=== PATIENT | male | born 1985 | race Caucasian/White ===

== ENCOUNTER 2017-07-27 10:35 | Inpatient (IN) | payer MEDICAID ==
--- NOTE | 2017-07-27 10:48 | CPEKG ---
Heart Rate: 118 RR Interval: 508 P-R Interval: 184 QRSD Interval: 88 QT Interval: 324 QTC Interval: 455 P Ard[place]: 63 QRS Ard[place]: 5 T Wave [place]: 211 EKG Severity - ABNORMAL ECG - EKG Impression: SINUS TACHYCARDIA EKG Impression: RIGHT ATRIAL ABNORMALITY EKG Impression: LEFT VENTRICULAR HYPERTROPHY Electronically Signed By: Lionel Flaherty 27-Jul-2017 11:28:19
[2017-07-27] MEDS ORDERED: NICOTINE 21 MG/24 HR PATCH TD ONE (11:17)
[2017-07-27] MEDS ORDERED: NS 1,000 ML IV ONE (11:17)
[2017-07-27] MEDS ORDERED: LORazepam 2 MG/ML INJ IVP ONE ×2 (11:17→12:37)
[2017-07-27] MEDS ORDERED: LORazepam 1 MG TAB ONE (11:18)
[2017-07-27] MEDS ORDERED: LORazepam 1 MG TAB PO ONE (11:20)
--- NOTE | 2017-07-27 11:20 | EDPHY ---
H & P Time Seen by Provider: 07/27/17 11:04 HPI/ROS: CHIEF COMPLAINT: Cough and vomiting HISTORY OF PRESENT ILLNESS: Patient has been sick since Saturday of this week, had cough which got worse the last 3 days with greenish dark and then yellow orange sputum. Bilateral upper chest congestion. Symptoms severe and then associated with 6 episodes of nausea and vomiting, most recently today. Symptoms moderate to severe. Not better worse with anything. REVIEW OF SYSTEMS: Eye: no change in vision ENT: no sore throat Cardiac: No palpitations or syncope Pulmonary: No hemoptysis Abdomen: No abdominal pain or diarrhea Musculoskeletal: No leg swelling Skin: no rash Neuro: no headache Constitutional: no fever : no urinary symptoms A comprehensive 10 point review of systems is otherwise negative aside from elements mentioned in the history of present illness. PAST MEDICAL HISTORY: Negative except for previous pneumonia and anxiety disorder. Social history: No recent travel or immobilization, is a tobacco smoker. Frequent alcohol use. General Appearance: Alert and conversant, cooperative. Eyes: No scleral icterus. ENT, Mouth: Dry mucous membranes. Respiratory: Left lower lung crackles, tachypneic. Cardiovascular: Regular rate and rhythm. Tachycardic. Gastrointestinal: Abdomen is soft and non tender. Neurological: Alert, face symmetric, normal motor and sensory in extremities. Skin: Warm and dry, no rashes. Musculoskeletal: No peripheral edema. No calf tenderness. Psychiatric: Not agitated. Emergency Department course/MDM: Patient has anxiety, 1 mg oral Ativan and nicotine patch ordered. Emphasize the patient with tachycardia and hypoxemia he would likely need to be admitted, high suspicion for pneumonia. Chest x-ray, sepsis screening with lactate and blood cultures. 1211: Lactate 2.7, severe sepsis, appropriate IV fluid bolus and repeat lactate , ceftriaxone and azithromycin IV. Requires admission for pulmonary infection with hypoxemia. Additional 2 mg IV Ativan given. Ceftriaxone started in ED. Repeat lactate 2.6. Smoking Status: Heavy smoker Constitutional: Initial Vital Signs Temperature (C) 36.6 C 07/27/17 10:43 Heart Rate 123 H 07/27/17 10:43 Respiratory Rate 24 H 07/27/17 10:43 Blood Pressure 124/91 H 07/27/17 10:43 O2 Sat (%) 88 L 07/27/17 10:43 O2 Delivery Mode Nasal Cannula O2 (L/minute) 2 Allergies/Adverse Reactions: No Known Allergies Allergy (Unverified 07/27/17 10:47) Home Medications: Medication Instructions Recorded NK [No Known Home Meds] 07/27/17 Medical Decision Making - Diagnostics EKG Interpretation: 12-lead EKG interpreted by me; official reading is in trace master. My interpretation is sinus tachycardia rate 118, probable LVH. Imaging Results: Imaging Impressions Chest X-Ray 07/27/17 11:16 Impression: Diffuse peribronchial thickening with scattered opacities and fissural thickening. While this most likely represents bronchitis with pneumonia , fluid overload and asymmetric pulmonary edema could have a similar appearance. Imaging: I viewed and interpreted images myself Differential Diagnosis: Differential diagnosis considered for shortness of breath including but not limited to pulmonary infectious process, COPD, asthma, pulmonary embolus and congestive heart failure. Consult/Admit Bed Type: [place] [address] Critical Care Time: Critical care time spent by me, Dr. Flaherty, exclusively with the care of this patient was 35 minutes, exclusive of PA or VETERINARY TOXICOLOGIST time and exclusive of separate procedures. The organ system at risk was pulmonary with tachycardia and hypoxemia, and I ordered supplemental oxygen, IV fluids, IV antibiotics, multiple diagnostics, hospitalist consultation to stabilize the patient and prevent worsening of the patient's condition. - Data Points Laboratory Results: Laboratory Results 07/27/17 12:00 07/27/17 12:00 07/27/17 07/27/17 07/27/17 12:00 12:00 12:00 WBC 4.30 10^3/uL 10^3/uL (3.80-9.50) RBC 4.60 10^6/uL 10^6/uL (4.40-6.38) Hgb 17.3 g/dL g/dL (13.7-17.5) Hct 48.1 % % (40.0-51.0) MCV 104.6 fL H fL (81.5-99.8) MCH 37.6 pg H pg (27.9-34.1) MCHC 36.0 g/dL g/dL (32.4-36.7) RDW 12.5 % % (11.5-15.2) Plt Count 127 10^3/uL L 10^3/uL (150-400) MPV 10.6 fL fL (8.7-11.7) Neut % (Auto) 69.2 % % (39.3-74.2) Lymph % (Auto) 17.2 % % (15.0-45.0) Faulk % (Auto) 12.3 % % (4.5-13.0) Eos % (Auto) 0.2 % L % (0.6-7.6) Baso % (Auto) 0.9 % % (0.3-1.7) Nucleat RBC Rel Count 0.0 % % (0.0-0.2) Absolute Neuts (auto) 2.97 10^3/uL 10^3/uL (1.70-6.50) Absolute Lymphs (auto) 0.74 10^3/uL L 10^3/uL (1.00-3.00) Absolute Monos (auto) 0.53 10^3/uL 10^3/uL (0.30-0.80) Absolute Eos (auto) 0.01 10^3/uL L 10^3/uL (0.03-0.40) Absolute Basos (auto) 0.04 10^3/uL 10^3/uL (0.02-0.10) Absolute Nucleated RBC 0.00 10^3/uL 10^3/uL (0-0.01) Immature Gran % 0.2 % % (0.0-1.1) Immature Gran # 0.01 10^3/uL 10^3/uL (0.00-0.10) PT 13.3 SEC SEC (12.0-15.0) INR 0.99 (0.83-1.16) APTT 28.0 SEC SEC (23.0-38.0) VBG Lactic Acid Sodium 145 mEq/L mEq/L (135-145) Potassium 4.2 mEq/L mEq/L (3.5-5.2) Chloride 108 mEq/L mEq/L (97-110) Carbon Dioxide 27 mEq/l mEq/l (22-31) Anion Gap 10 mEq/L mEq/L (8-16) BUN 7 mg/dL mg/dL (7-23) Creatinine 0.8 mg/dL mg/dL (0.7-1.3) Estimated GFR > 60 Glucose 81 mg/dL mg/dL (70-100) Calcium 8.2 mg/dL L mg/dL (8.5-10.4) Total Bilirubin 1.0 mg/dL mg/dL (0.1-1.4) 07/27/17 12:00 WBC RBC Hgb Hct MCV MCH MCHC RDW Plt Count MPV Neut % (Auto) Lymph % (Auto) Faulk % (Auto) Eos % (Auto) Baso % (Auto) Nucleat RBC Rel Count Absolute Neuts (auto) Absolute Lymphs (auto) Absolute Monos (auto) Absolute Eos (auto) Absolute Basos (auto) Absolute Nucleated RBC Immature Gran % Immature Gran # PT INR APTT VBG Lactic Acid 2.7 mmol/L H mmol/L (0.7-2.1) Sodium Potassium Chloride Carbon Dioxide Anion Gap BUN Creatinine Estimated GFR Glucose Calcium Total Bilirubin Medications Given: Azithromycin 500 mg/ Sodium (Chloride) 255 mls @ 255 mls/hr IV EDNOW ONE PRN Reason: Protocol Stop: 07/27/17 13:59 Last Admin: 07/27/17 13:03 Dose: 255 mls Discontinued Medications Sodium Chloride (Ns) 1,000 mls @ 0 mls/hr IV EDNOW ONE; Wide Open PRN Reason: Protocol Stop: 07/27/17 11:18 Last Admin: 07/27/17 12:05 Dose: 1,000 mls Ceftriaxone Sodium/Dextrose (Rocephin 1 Gm (Premix)) 50 mls @ 100 mls/hr IV EDNOW ONE PRN Reason: Protocol Stop: 07/27/17 12:50 Last Admin: 07/27/17 12:34 Dose: 50 mls Sodium Chloride (Ns) 1,800 mls @ 3,600 mls/hr 30 ml/kg infuse over 30 min ( 1800 ml) IV EDNOW ONE PRN Reason: Protocol Stop: 07/27/17 12:50 Last Admin: 07/27/17 12:32 Dose: 1,800 mls Lorazepam (Ativan Injection) 1 mg IVP EDNOW ONE Stop: 07/27/17 11:18 Last Admin: 07/27/17 11:21 Dose: Not Given Lorazepam (Ativan) 1 mg PO ONCE ONE Stop: 07/27/17 11:21 Last Admin: 07/27/17 11:21 Dose: 1 mg Lorazepam (Ativan Injection) 2 mg IVP EDNOW ONE Stop: 07/27/17 12:38 Last Admin: 07/27/17 12:40 Dose: 2 mg Nicotine (Nicoderm Cq) 21 mg TD EDNOW ONE Stop: 07/27/17 11:18 Last Admin: 07/27/17 12:05 Dose: 21 mg Departure - Departure Disposition: [facility] Acute Clinical Impression: Pneumonia Qualifiers: Pneumonia type: due to unspecified organism Condition: Good
[2017-07-27 12:17] LABS: PLATELET COUNT 127 10^3/uL (150-400)
[2017-07-27] MEDS ORDERED: AZITHROMYCIN IV 500 MG in D5W 250 ML IV ONE (12:21)
[2017-07-27] MEDS ORDERED: NS 1,800 ML IV ONE ×2 (12:21→14:08)
[2017-07-27 12:27] LABS: INR 0.99 (0.83-1.16); PROTIME(PATIENT) 13.3 SEC (12.0-15.0)
[2017-07-27] MEDS ORDERED: AZITHROMYCIN IV 500 MG in NS 250 ML IV ONE (13:00)
[2017-07-27] MEDS ORDERED: ACETAMINOPHEN 325 MG TAB PO PRN (13:27)
[2017-07-27] MEDS ORDERED: ALBUTEROL 3 ML DEYVIAL IH PRN (13:27)
[2017-07-27] MEDS ORDERED: NICOTINE POLACRILEX 2 MG GUM B PRN (13:27)
[2017-07-27] MEDS ORDERED: LORazepam 1 MG TAB PO PRN (13:27)
[2017-07-27] MEDS ORDERED: ONDANSETRON DISINTEGRATING 4 MG TAB PO PRN (13:27)
[2017-07-27] MEDS ORDERED: MAG HYDROX/AL HYDROX/SIMETH 30 ML UDCUP PO PRN (13:27)
[2017-07-27] MEDS ORDERED: HYDROCODONE/APAP 5/325 TAB PO PRN (13:27)
[2017-07-27] MEDS ORDERED: PROMETHAZINE HCL 25 MG/ML INJ IVP PRN (13:27)
--- NOTE | 2017-07-27 13:36 | ASMTCMCOM ---
CM Note CM Note Notes: Pt presented to the Emergency Department with a cough and vomiting x several days. Per MD notes, pt to be admitted for high suspicion of pneumonia No significant history. Per Demographics, pt appears to live alone, but has a fiance named Funmi. Anticipate pt will likely discharge home independently when medically stable. CM will continue to follow for any potential needs. Current Discharge Plan: To be determined Date Signed: 07/27/2017 01:35 PM Electronically Signed By:Paloma Juan RN
[2017-07-27] MEDS ORDERED: IOPAMIDOL (ISOVUE 370) 100 ML BTL IV ONE (14:09)
[2017-07-27] MEDS ORDERED: ALTEPLASE 2 MG VIAL IVP PRN (15:27)
[2017-07-27] MEDS: LORazepam 2 MG/ML INJ IVP PRN ×2 (15:39→23:43)
[2017-07-27] MEDS: ONDANSETRON 4 MG/2 ML VIAL IVP PRN ×2 (15:40→20:03)
--- NOTE | 2017-07-27 16:01 | GCON ---
[f rep st] CONSULTATION RADIO ENGINEERING TEACHER CONSULTATION REASON FOR ADMISSION: Acute hypoxemic respiratory failure secondary to pneumonia and pneumonia. HISTORY OF PRESENT ILLNESS: The patient is a 31-year-old, white male with a past medical history of anxiety disorder. Over the last week, he has had worsening cough that began producing greenish sputu m. There has been some blood-tinged sputum, as well. He has had increasing nausea and vomiting. He subsequently became breathless and sought medical attention in the emergency room. He was subsequen tly admitted to the floor and was then transferred to the intensive care unit secondary to continued hypoxemia. In discussion with the patient, he states, with the exception of breathlessness as well a s cough, he feels somewhat better. His nausea has improved. Currently, he is resting comfortably on 100% non-rebreather. REVIEW OF SYSTEMS: A 10-point review of systems was performed and negative with the exception of wha t is in the HPI. PAST MEDICAL HISTORY: Significant for anxiety disorder. ALLERGIES: No known allergies to medications. SOCIAL HISTORY: He is a 12 [id number] and continues to smoke. He also is apparently an alcoho lic per his fiancee. FAMILY HISTORY: Noncontributory. 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 He is single, but engaged. HOME MEDICATIONS: None. PHYSICAL EXAMINATION: VITAL SIGNS: Blood pressure 70/39, pulse 113, respirations 36, temperature 36 .8, oxygen saturation 96% on 15 L non-rebreather. GENERAL: Thin but well-developed 31-year-old whit e male who is in moderate respiratory distress. HEENT: Eyes are PERRLA, EOMI. Throat exam is defer red. NECK: Supple. No cervical adenopathy. HEART: Regular rate and rhythm but tachycardic. LUNG S: Diminished breath sounds. He is tachypneic. ABDOMEN: Soft, nontender. Bowel sounds are presen t in all 4 quadrants. EXTREMITIES: No clubbing, cyanosis, or edema. LABORATORIES: White count 4.3, hemoglobin 7, hematocrit 48, MCV 104, platelet count 127. INR is 0.9 9. Sodium 145, potassium 4.2, chloride 108, CO2 is 27, BUN 7, creatinine 0.8. Lactate is 2.70. Chest x-ray reveals diffuse scattered opacifications throughout both lungs. CT scan of the chest rev eals similar, including patchy infiltrates in all lung samuels. IMPRESSION: 1. Multilobar pneumonia. 2. Acute hypoxemic respiratory failure secondary to above. 3. Alcoholism. 4. Tobacco abuse. 5. Anxiety. 6. Sepsis with shock. 7. Lactic acidosis. 8. Macrocytosis. RECOMMENDATIONS: 1. Continue high-flow oxygen. 2. Sepsis protocol. 3. CIWA protocol. 4. Agree with current antibiotic coverage. 5. Consider IV steroids. 6. Consider BiPAP versus intubation if necessary. 7. DVT and PE prophylaxis. 8. Stress ulcer prophylaxis. /[id number]/MODL
[2017-07-27] MEDS: MULTIVITAMINS 1 EACH TAB PO SCH (16:25)
[2017-07-27] MEDS: FOLIC ACID 1 MG TAB PO SCH (16:25)
--- NOTE | 2017-07-27 16:28 | PDGENHP ---
History and Physical - Chief Complaint sob - History of Present Illness 31 yo M with no PMH other than etoh abuse presenting with sob, cough, n/v for the last 5 days. He notes beginning to feel ill as if he had the flu earlier in the week. He had a cough which was initially yellow to green, and more recently has been productive of orange to red streaked sputum. He often coughs so hard that he vomits. He states that due to not feeling well in the past week, he has been drinking heavier than usual. He admits that in general he tends to drink too much, but has not had withdrawal in the past. He denies feeling as if he is having withdrawal currently. History Information - Allergies/Home Medication List Allergies/Adverse Reactions: No Known Allergies Allergy (Unverified 07/27/17 10:47) Home Medications: NK [No Known Home Meds] 07/27/17 [Last Taken Unknown] I have personally reviewed and updated: family history, medical history, social history, surgical history - Past Medical History Additional medical history: etoh abuse - Surgical History Reports: no pertinent surgical hx - Family History Positive for: non-pertinent - Social History Smoking Status: Heavy smoker Alcohol Use: Heavy Drug Use: None Review of Systems Review of Systems: ROS: 10pt was reviewed & negative except for what was stated in HPI & below Physical Exam Physical Exam: Temp Pulse Resp BP Pulse Ox 37.2 C 116 H 32 H 110/73 97 07/27/17 16:00 07/27/17 16:00 07/27/17 16:00 07/27/17 16:00 07/27/17 16:00 O2 (L/minute) 15 FIO2 (%) 100 Constitutional: not in pain, uncomfortable, No no apparent distress Eyes: PERRL, anicteric sclera Ears, Nose, Mouth, Throat: moist mucous membranes, hearing normal Cardiovascular: no murmur, rub, or gallop, tachycardia, No edema Respiratory: expiratory wheeze, bronchial breath sounds, respiratory distress Gastrointestinal: normoactive bowel sounds, soft, non-tender abdomen Genitourinary: no bladder tenderness Skin: warm, normal color Musculoskeletal: full muscle strength Neurologic: AAOx3 Psychiatric: interacting appropriately, not anxious Lab Data & Imaging Review 07/27/17 12:00 07/27/17 12:00 WBC 4.30 10^3/uL (3.80-9.50) 07/27/17 12:00 RBC 4.60 10^6/uL (4.40-6.38) 07/27/17 12:00 Hgb 17.3 g/dL (13.7-17.5) 07/27/17 12:00 Hct 48.1 % (40.0-51.0) 07/27/17 12:00 MCV 104.6 fL (81.5-99.8) H 07/27/17 12:00 MCH 37.6 pg (27.9-34.1) H 07/27/17 12:00 MCHC 36.0 g/dL (32.4-36.7) 07/27/17 12:00 RDW 12.5 % (11.5-15.2) 07/27/17 12:00 Plt Count 127 10^3/uL (150-400) L 07/27/17 12:00 MPV 10.6 fL (8.7-11.7) 07/27/17 12:00 Neut % (Auto) 69.2 % (39.3-74.2) 07/27/17 12:00 Lymph % (Auto) 17.2 % (15.0-45.0) 07/27/17 12:00 Kemper % (Auto) 12.3 % (4.5-13.0) 07/27/17 12:00 Eos % (Auto) 0.2 % (0.6-7.6) L 07/27/17 12:00 Baso % (Auto) 0.9 % (0.3-1.7) 07/27/17 12:00 Nucleat RBC Rel Count 0.0 % (0.0-0.2) 07/27/17 12:00 Absolute Neuts (auto) 2.97 10^3/uL (1.70-6.50) 07/27/17 12:00 Absolute Lymphs (auto) 0.74 10^3/uL (1.00-3.00) L 07/27/17 12:00 Absolute Monos (auto) 0.53 10^3/uL (0.30-0.80) 07/27/17 12:00 Absolute Eos (auto) 0.01 10^3/uL (0.03-0.40) L 07/27/17 12:00 Absolute Basos (auto) 0.04 10^3/uL (0.02-0.10) 07/27/17 12:00 Absolute Nucleated RBC 0.00 10^3/uL (0-0.01) 07/27/17 12:00 Immature Gran % 0.2 % (0.0-1.1) 07/27/17 12:00 Immature Gran # 0.01 10^3/uL (0.00-0.10) 07/27/17 12:00 PT 13.3 SEC (12.0-15.0) 07/27/17 12:00 INR 0.99 (0.83-1.16) 07/27/17 12:00 APTT 28.0 SEC (23.0-38.0) 07/27/17 12:00 VBG Lactic Acid 2.8 mmol/L (0.7-2.1) H 07/27/17 16:10 Sodium 145 mEq/L (135-145) 07/27/17 12:00 Potassium 4.2 mEq/L (3.5-5.2) 07/27/17 12:00 Chloride 108 mEq/L (97-110) 07/27/17 12:00 Carbon Dioxide 27 mEq/l (22-31) 07/27/17 12:00 Anion Gap 10 mEq/L (8-16) 07/27/17 12:00 BUN 7 mg/dL (7-23) 07/27/17 12:00 Creatinine 0.8 mg/dL (0.7-1.3) 07/27/17 12:00 Estimated GFR > 60 07/27/17 12:00 Glucose 81 mg/dL (70-100) 07/27/17 12:00 Calcium 8.2 mg/dL (8.5-10.4) L 07/27/17 12:00 Total Bilirubin 0.8 mg/dL (0.1-1.4) 07/27/17 15:25 Conjugated Bilirubin 0.4 mg/dL (0.0-0.5) 07/27/17 15:25 Unconjugated Bilirubin 0.4 mg/dL (0.0-1.1) 07/27/17 15:25 AST 79 IU/L (17-59) H 07/27/17 15:25 ALT 50 IU/L (21-72) 07/27/17 15:25 Alkaline Phosphatase 52 IU/L (38-126) 07/27/17 15:25 Total Protein 5.1 g/dL (6.3-8.2) L 07/27/17 15:25 Albumin 2.6 g/dL (3.5-5.0) L 07/27/17 15:25 Procalcitonin 0.04 ng/mL (0.02-0.10) 07/27/17 15:25 Visualized and Interpreted Chest x-ray results: Yes Chest X-Ray results: other (cardiomegaly, pulmonary edema) Visualized and Interpreted imaging results: Yes Interpretation: ct chest: NO pe, patchy multifocal infiltrates c/w pulmonary edema, cardiomegaly, acute CHF Visualized and Interpreted EKG results: Yes EKG Interpretation: Positive for: LVH EKG additional interpertation: sinus tachycardia Assessment & Plan Assessment: Pneumonia (Acute) 31 yo M with limited PMH admitted with acute hypoxic respiratory failure and acute systolic chf # acute hypoxic respiratory failure: initially requiring low flow o2 but rapidly progressing and now requiring 15L NRB. In the setting of multifocal bilateral infiltrates c/w acute chf as next # acute systolic heart failure: stat echo performed showing EF of 15%, etiology unclear, ? viral myopericarditis versus toxic etiology though patient denies drug use. Will get tox screen, trop/bnp pending, cardiology consulted. # pna: sounds as if this is contributing as well with preceding illness, however now with obvious chf. Started on ctx/azithro, blood and sputum cultures pending, resp viral pcr panel pending # hypotension: so far has been fluid responsive, lactate only mildly elevated, low threshold to start pressors, PICC line placed # etoh abuse: with likely some withdrawal contributing to above, started on ciwa # IP status, high risk requiring ICU level care Patient new to my care. Further hx obtained from ray present at bedside. Care plan reviewed with pulmonary/cardiology as above. > 40 min of critical care time spent in evaluation/mgmt of above.
--- NOTE | 2017-07-27 16:47 | SOAPPROG ---
SOAP Progress Note Assessment/Plan: Assessment: Cardiology consultation performed and dictated. 31 y/o man with no previous cardiac problems or cardiac work up. He drinks 6-7 alcohol drinks per day x ten years and frequent, recent cocaine use with one week of URI symptoms and green sputum production and now rapidly worsening shortness of breath at rest. Stat bedside echo today shows LV enlargement ( consistent with chronic CHF) with LVEF 10-15% and global hypokinesis, mild RV dysfunction, severe MR without MV prolapse and moderate TR with estimated PAS 44mmHg, trivial pericardial effusion with no tamponade, no pleural effusion and normal trileaflet AV with no or AI. On my exam tachycardic with S3 but intravascularly dry. IMP: 1)acute on chronic probably non-ischemic systolic CHF with LVEF 13% from ETOH and cocaine use. Nothing to suggest acute myocarditis or KS. 2)URI 3)ETOHism 4)cocaine abuse REC: 1)IVF: NS at 100cc/hr ([facility] has already gotten 2 liters in first five hours of hospitalization) 2)Dobutamine 3mcg/kg/min IV thru PICC line. If no NSVT or angina, increase to 5mcg/kg/min 3)if SBP < 85 constantly, add Dopamine IV gtt at 3mcg/kg/min and titrate up for SBP > 105 4)ecg in AM 5)NT-pro BNP level 6)serial cardiac troponin q6hrs x 3 7)later in hospitalization once out of decompensated shock, will add Coreg and Lisinopril 8)will need a L/R cardiac cath later towards end of hospitalization Thanks. Will follow with you closely. Discussed my assessment openly and honestly with patient and his fiance at bedside and CUSTOMER MARKETING ASSISTANT and Dr. Darell Devi. 07/27/17 16:35 Objective: Vital Signs Temp Pulse Resp BP Pulse Ox 37.2 C 116 H 32 H 110/73 97 07/27/17 16:00 07/27/17 16:00 07/27/17 16:00 07/27/17 16:00 07/27/17 16:00 Microbiology 07/27/17 12:30 Respiratory Panel (PCR) - Final Nasal, Sinus - Swab No Organism Detected 07/26/17 07/27/17 07/28/17 05:59 05:59 05:59 Intake Total 2000 Output Total 0 Balance 2000 PT 13.3 SEC (12.0-15.0) 07/27/17 12:00 INR 0.99 (0.83-1.16) 07/27/17 12:00 ICD10 Worksheet Patient Problems: Problems Problem Status Onset Pneumonia Acute
[2017-07-27] MEDS ORDERED: NS 1,000 ML IV SCH (17:00)
[2017-07-27] MEDS ORDERED: DOBUTamine 500 MG in D5W 250 ML IV SCH (17:00)
--- NOTE | 2017-07-27 19:27 | GCON ---
[f rep st] CONSULTATION CONGESTIVE HEART FAILURE CONSULTATION DATE OF CONSULTATION: 07/27/2017 REASON FOR CONSULTATION: Evaluate gentleman with shortness of breath at rest, hypotension (with a bl ood pressure of 70/54), and new onset heart failure. HISTORY OF PRESENT ILLNESS: I was asked by Dr. Geraldine Dolan to consult for the above reasons. Th e patient is a 31-year-old gentleman with no previous cardiac problems. He admits that he drinks 6-7 alcoholic drinks a day for the last 10 years and uses cocaine frequently, in particular in the last week. He has had no previous cardiac problems or workup that he knows of. For the last week, he has been getting more short of breath with pleuritic chest pain and greenish sputum production. He came into the emergency room and quickly became more short of breath. A bedside echo demonstrates an LVE F of 10% to 15% with global hypokinesis. The left ventricle is enlarged, consistent with a chronic p rocess. He has mild RV dysfunction, severe central mitral regurgitation with no evidence of mitral v alve prolapse, and moderate tricuspid insufficiency with estimated PA pressures of 44 mmHg. He has a normal trileaflet aortic valve with no or AI. There is a trivial pericardial effusion with no ta mponade, and there is no pleural effusion. He currently still is short of breath at rest and having pleuritic chest pain. He denies fevers or chills. His EKG demonstrated sinus tachycardia with left atrial enlargement. PAST MEDICAL HISTORY: 1. Chronic alcohol abuse. 2. Probable new upper respiratory infection. 3. Anxiety. 4. Cocaine addiction. PAST SURGICAL HISTORY: None. CURRENT MEDICATIONS: Azithromycin, ceftriaxone, and normal saline x2 L. ALLERGIES: No known drug allergies. SOCIAL HISTORY: Patient's fiance is in the room with him. He smokes half a pack per cigarettes per day. Alcohol and cocaine use as per HPI. FAMILY HISTORY: Unremarkable for premature coronary artery disease or heart failure. REVIEW OF SYSTEMS: Patient reports his weight fluctuates about 10 pounds over the last 2 months. He reports no TIA or CVA symptoms. He has no GI bleed symptoms such as hematemesis, melena, or bright red blood per rectum. Rest of 10-point review of systems is negative. PHYSICAL EXAMINATION: VITAL SIGNS: Afebrile. Pulse 113 and regular. Blood pressure 91/50. Respir ations 28. Weight 61.2 kg. GENERAL: A sick-appearing gentleman with mild respiratory distress and n o chest pain. EYES: Pupils equal and reactive to light. ENT: Oral mucosa with no cyanosis. NECK: Jugular venous pressure to 6-7 cm. Carotid pulses 2+ bilaterally with no obvious bruits. No nucha l rigidity noted. LUNGS: Wheezes throughout. HEART: Tachycardic with normal PMI, a 1/6 systolic m urmur, and positive S3 gallop heard. ABDOMEN: No guarding or rebound. No hepatosplenomegaly or asc ites. EXTREMITIES: 1 to 2+ peripheral pulses. No edema noted. MUSCULOSKELETAL: No scoliosis. MICK RO: Normal affect and mood neck with no nuchal rigidity. SKIN: No bleeding or cyanosis. DIAGNOSTICS: EKG: Sinus tachycardia with left atrial enlargement. LABS: White count 4.3, hematocrit 48, platelets 127, MCV 105. Sodium 145, potassium 4.2, chloride 1 08, bicarb 27, BUN 7, creatinine 0.8. AST 79, ALT 50, albumin 2.6. Troponin and BNP level pending. IMPRESSION AND RECOMMENDATIONS: A 31-year-old gentleman with probably xdcms-sc-kfsomer nonischemic s ystolic heart failure with a left ventricular ejection fraction of 12% from alcohol and cocaine abuse . Clinically, he appears intravascularly dry. I think his acute clinical deterioration is his havin g an upper respiratory infection with a longstanding cardiomyopathy. There is no suggestion of acute myocarditis or obstructive coronary disease causing an acute myocardial infarction. RECOMMENDATIONS: 1. Would continue normal saline at 100 cc/hr, as I think he is intravascularly dry. 2. Would start on dobutamine at 3 mcg/kg per minute and titrate up to 5 mcg/kg per minute as long as there is no angina or nonsustained VT, as he is in moderate cardiogenic shock. 3. If those maneuvers do not keep his blood pressure above 85, would add dopamine at 3 mcg/kg per mi nute and titrate up as needed for a systolic blood pressure above 105. 4. Would get serial cardiac enzymes x3 sets over the next 24 hours. 5. Later in this hospitalization, once his upper respiratory infection is resolved and he is more co mpensated, would do a left and right heart catheterization to exclude coronary artery disease, though my suspicion is low. 6. Started conversation with him about need for complete alcohol and cocaine cessation. Will contin ue to reinforce this during the hospitalization. Will plan on continuing to see with you daily this sick gentleman. /[id number]/MODL
[2017-07-27] MEDS: FAMOTIDINE 20 MG TAB PO SCH (20:02)
[2017-07-28] MEDS: LORazepam 2 MG/ML INJ IVP PRN ×7 (01:33→21:01)
[2017-07-28] MEDS: ONDANSETRON 4 MG/2 ML VIAL IVP PRN ×2 (01:33→11:19)
[2017-07-28 05:08] LABS: PLATELET COUNT 99 10^3/uL (150-400)
--- NOTE | 2017-07-28 05:48 | CPEKG ---
Heart Rate: 115 RR Interval: 522 P-R Interval: 188 QRSD Interval: 84 QT Interval: 416 QTC Interval: 576 P [place]: 0 QRS [place]: 50 T Wave [place]: 243 EKG Severity - ABNORMAL ECG - EKG Impression: SINUS TACHYCARDIA EKG Impression: PROBABLE LEFT ATRIAL ABNORMALITY EKG Impression: BORDERLINE R WAVE PROGRESSION, ANTERIOR LEADS EKG Impression: ABNORMAL T, PROBABLE ISCHEMIA, WIDESPREAD EKG Impression: PROLONGED QT INTERVAL Electronically Signed By: Clary Celestin 28-Jul-2017 13:36:07
[2017-07-28] MEDS ORDERED: D50W 25 GM/50 ML SYR IVP ONE (06:09)
[2017-07-28] MEDS ORDERED: D50W 25 GM/50 ML VIAL IVP ONE (07:00)
[2017-07-28] MEDS: FOLIC ACID 1 MG TAB PO SCH (08:04)
[2017-07-28] MEDS: THIAMINE HCL 500 MG in NS 100 ML IV SCH ×2 (08:04→08:05)
[2017-07-28] MEDS: MULTIVITAMINS 1 EACH TAB PO SCH (08:04)
[2017-07-28] MEDS: FAMOTIDINE 20 MG TAB PO SCH ×2 (08:04→21:01)
[2017-07-28] MEDS: NICOTINE 21 MG/24 HR PATCH TD SCH (08:04)
[2017-07-28] MEDS ORDERED: PROTOCOL K PHOSPHATE 1 DOSE IV PRN (08:52)
[2017-07-28] MEDS ORDERED: PROTOCOL MAGNESIUM 1 DOSE IV PRN (08:52)
[2017-07-28] MEDS ORDERED: PROTOCOL CALCIUM 1 DOSE IV PRN (08:52)
[2017-07-28] MEDS ORDERED: PROTOCOL POTASSIUM 1 DOSE MISC PRN ×2 (08:52)
--- NOTE | 2017-07-28 08:59 | PDINTPN ---
Negative Checker Progress Note Assessment/Plan: Assessment/plan: * Cardiomyopathy-likely secondary to alcohol as well as as cocaine. Ejection fraction approximately 15% -continue dobutamine -will discuss with Cardiology * Upper respiratory tract infection-diffuse pneumonia versus bronchitis -continue current antibiotics * Acute hypoxic respiratory failure secondary to cardiomyopathy and URI-still on high-flow oxygen -wean FiO2 as tolerated -will check chest x-ray * Shock-improved with dobutamine. -will follow closely -add dopamine if necessary * Hypoglycemia required an amp of D50 last night. -add dextrose to IV * Alcoholism * Polysubstance abuse * Acute alcohol withdrawals-on CIWA. Received 16 mg of Ativan last night per protocol. -change to Precedex * Anxiety * VTE prophylaxis * Stress ulcer prophylaxis Subjective: Resting comfortably. Periods of agitation throughout the night requiring increased Ativan. Objective: Vital Signs Temp Pulse Resp BP Pulse Ox 37 C 111 H 42 H 115/67 94 07/28/17 08:00 07/28/17 08:00 07/28/17 08:00 07/28/17 08:00 07/28/17 08:00 Laboratory Results 07/28/17 04:50 07/28/17 04:50 07/27/17 07/28/17 07/29/17 05:59 05:59 05:59 Intake Total 3648 Output Total 300 Balance 3348 PT 13.3 SEC (12.0-15.0) 07/27/17 12:00 INR 0.99 (0.83-1.16) 07/27/17 12:00 - Time Spent With Patient Time Spent With Patient: 35 min of critical care time spent with patient. Case discussed with family, Cardiology, Respiratory therapy and Nursing Physical Exam - Physical Exam General Appearance: alert, mild distress, anxiety EENT: PERRL/EOMI Neck: non-tender, full range of motion, supple, normal inspection Respiratory: respiratory distress (Mild), crackles, No wheezing Cardiac/Chest: normal peripheral pulses, regular rate, rhythm, systolic murmur Peripheral Pulses: 2+: carotid (R), carotid (L), femoral (R), femoral (L), dorsalis-pedis (R), dorsalis-pedis (L) Abdomen: normal bowel sounds, non-tender, soft Male Genitalia: deferred Rectal: deferred Skin: normal color, warm/dry Extremities: normal range of motion, non-tender, normal inspection, normal capillary refill Neuro/Psych: alert, other (Mildly tremulous) ICD10 Worksheet Patient Problems: Problems Problem Status Onset Pneumonia Acute
[2017-07-28] MEDS ORDERED: DEXMEDETOMIDINE HCL 400 MCG in NS 100 ML IV SCH (09:00)
--- NOTE | 2017-07-28 09:45 | SOAPPROG ---
SOAP Progress Note Assessment/Plan: Assessment: 31 y/o man with no previous cardiac problems or cardiac work up. He drinks 6-7 alcohol drinks per day x ten years and frequent, recent cocaine use with one week of URI symptoms and green sputum production and now rapidly worsening shortness of breath at rest. Stat bedside echo shows LV enlargement (consistent with chronic CHF) with LVEF 10-15% and global hypokinesis, mild RV dysfunction, severe MR without MV prolapse and moderate TR with estimated PAS 44mmHg, trivial pericardial effusion with no tamponade, no pleural effusion and normal trileaflet AV with no or AI. He has stabilized his BP and cardiac status on IV DBT last 14hrs but now starting to have significant ETOH w/d symptoms. On my exam he is euvolemic. PLAN: 1)start Lisinopril 5mg PO qam. 2)decrease IV DBT to 3mcg/kg/min keeping SBP >90 3)probably try to wean off IV DBT saturday or saturday 4)L/R cardiac cath later in hospital 5)beta blockers will help his newly discovered CHF and his ETOH w/d but still on IV inotropes and would hold off on Metoprolol for 24-48hrs until off IV DBT 07/28/17 09:41 Subjective: agitated. He feels he is breathing better but has bilateral chest pain. He wants to go home. Objective: Vital Signs Temp Pulse Resp BP Pulse Ox 37 C 112 H 33 H 112/76 96 07/28/17 08:00 07/28/17 09:00 07/28/17 09:00 07/28/17 09:00 07/28/17 09:00 Laboratory Results 07/28/17 04:50 07/28/17 04:50 07/27/17 07/28/17 07/29/17 05:59 05:59 05:59 Intake Total 3648 Output Total 300 Balance 3348 PT 13.3 SEC (12.0-15.0) 07/27/17 12:00 INR 0.99 (0.83-1.16) 07/27/17 12:00 Physical Exam - Physical Exam General Appearance: anxiety EENT: normal ENT inspection Neck: non-tender Respiratory: crackles (rare crackles bilaterally. Poor respiratory effort.) Cardiac/Chest: gallop (JVP to 8cm.), JVD, tachycardia, systolic murmur Abdomen: non-tender, No distended, No guarding, No hepatomegaly Skin: warm/dry Extremities: No pedal edema Neuro/Psych: other (agitated) ICD10 Worksheet Patient Problems: Problems Problem Status Onset Pneumonia Acute
[2017-07-28] MEDS: LISINOPRIL 5 MG TAB PO SCH (10:00)
[2017-07-28] MEDS ORDERED: DEXMEDETOMIDINE IN 0.9 % NACL 100 ML IV SCH (10:00)
--- NOTE | 2017-07-28 10:11 | HOSPPROG ---
Hospitalist Progress Note Assessment/Plan: 31 yo M with limited PMH other than etoh and cocaine abuse admitted with acute hypoxic respiratory failure and acute systolic chf # acute hypoxic respiratory failure: continues to require high flow o2, now 25L. 2/2 acute CHF as next as well as URI. Continue to monitor in ICU, thus far does not require intubation # acute systolic heart failure: likely acute on chronic picture with LV enlargement c/w more chronic CHF, LVEF noted to be 10-15% with global hypokinesis and VHD. Hypotensive on admission with cardiogenic shock and being treated with dobutamine overnight, goal SBP > 90. New dx, will need L/R heart cath in coming days, appreciate cardiology input. Starting lisinopril but holding off on BB until off of dobutamine. Appears euvolemic. # pna: with URI sxs preceding hospitalization and pulmonary infiltrates 2/2 chf but also difficult to rule out concurrent infectious process. Procalcitonin very low, resp PCR negative, cultures pending. Will continue ctx/azithro for now but likely can dc in next 1-2 days if cultures remain negative. # cardiogenic shock: stable now on dobutamin, will likely wean in coming 1-2 days # VHD: echo showing severe MR and moderate TR, PAS of 44mmHg # etoh abuse and withdrawal: more and more agitated overnight, started on precedex gtt with scheduled ativan # cocaine abuse: initially denying, utox +. Encouraging cessation # hypoglycemia: in setting of no po intake per GF for about 1 week, will change fluid to D5NS # IP status, high risk requiring ICU level care > 40 min of critical care time spent on this patient as above. Care plan reviewed with Dr. Devi. Subjective: no significant overnight events, patient agitated this am, states he wants to leave and doesn't understand why he has to be here Objective: Vital Signs Temp Pulse Resp BP Pulse Ox 37 C 111 H 35 H 111/62 93 07/28/17 08:00 07/28/17 09:53 07/28/17 09:53 07/28/17 10:00 07/28/17 09:53 Laboratory Results 07/28/17 04:50 07/28/17 04:50 07/27/17 07/28/17 07/29/17 05:59 05:59 05:59 Intake Total 3648 Output Total 300 Balance 3348 PT 13.3 SEC (12.0-15.0) 07/27/17 12:00 INR 0.99 (0.83-1.16) 07/27/17 12:00 agitated alert anicteric op clear tachy regular no mrg coarse bs with bibasilar rales tachypneic soft nt nd no cce warm dry well perfused agitated anxious ICD10 Worksheet Patient Problems: Problems Problem Status Onset Pneumonia Acute
[2017-07-28] MEDS: DEXMEDETOMIDINE IN 0.9 % NACL 100 ML IV SCH ×2 (10:15→21:36)
--- NOTE | 2017-07-28 10:17 | ECHO ---
[email or web address] [address] [address] Main: [phone] Fax: Transthoracic Echocardiogram Name: ZANE RHODES MR#: [id number] Study Date: 07/27/2017 Study Time: 03:57 PM Date of : 1985 Age: 31 year(s) Height: 185.4 cm (73 in.) Weight: 61.24 kg (135 lb.) BSA: 1.82 m2 Gender: Male Examination: Echo Indication: Acute CHF Image Quality: Contrast: Requested by: Geraldine Dolan BP: 113 mmHg/79 mmHg Heart Rate: Rhythm: Indication: Acute CHF Procedure Staff Travel Cota: Michelle Dao [facility] Reading Physician: Agus Deras MD Requesting Provider: Conclusions: Severely dilated left ventricle. The ejection fraction is estimated to be 10-15 %. Normal size right ventricle. Moderately reduced RV function. The left atrium is moderately dilated. The right atrium is normal in size. The mitral valve is normal in appearance and function. Moderate to severe mitral regurgitation. The aortic valve is normal in appearance and function. The tricuspid valve is normal in appearance and function. Mild to moderate tricuspid valve regurgitation. The pulmonary artery pressure is mildly increased. RVSP is 44mmHG.. The pulmonic valve is normal in appearance and function. Measurements: Chambers Valvular Assessment AV/MV Valvular Assessment TV/PV Normal Normal Normal Name Value Range Name Value Range Name Value Range Ao Ligia (MM): 3.8 cm (2.2 cm-3.7 AV meanP mmHg ( - ) TR Vmax: 3.11 mm/s ( - ) cm) LORENZO (VTI): 3.0 cm ( - ) TR PGmax: 39 mmHg ( - ) IVSd (2D): 0.5 cm (0.6 cm-1.1 MV E Vmax: 1.18 m/s ( - ) syst. PAP: 44 mmHg ( - ) cm) LVDd (2D): 7.4 cm (4.2 cm-5.9 cm) LVDs (2D): 6.9 cm (2.1 cm-4 cm) LVPWd (2D): 0.9 cm (0.6 cm-1 cm) LVOTd 2.4 cm 2.4 cm mm Patient: ZANE RHODES Study Date: 07/27/2017 Page 1 of 2 03:57 PM LVEF (MOD4): 10 % (>=55 %) EF Range: 10-15 % Continued Measurements: Chambers Valvular Assessment AV/MV Valvular Assessment TV/PV Name Value Name Value Name Value LADs: 4.7 cm MV E' Septal: 0.09 m/s CVP (est.): 5 mmHg LADs Lon.7 cm MV E/E' Septal: 13.50 LA Area: 26.7 cm2 MR Vena Contracta: 0.4 cm MR PISA radius: 8 mm Findings: Left Ventricle: Severely dilated left ventricle. The ejection fraction is estimated to be 10-15 %. Right Ventricle: Normal size right ventricle. Moderately reduced RV function. Left Atrium: The left atrium is moderately dilated. Right Atrium: The right atrium is normal in size. Mitral Valve: The mitral valve is normal in appearance and function. Moderate to severe mitral regurgitation. Aortic Valve: The aortic valve is normal in appearance and function. Tricuspid Valve: The tricuspid valve is normal in appearance and function. Mild to moderate tricuspid valve regurgitation. The pulmonary artery pressure is mildly increased. RVSP is 44mmHG.. Pulmonic Valve: The pulmonic valve is normal in appearance and function. Aorta: The aorta is normal. Pericardium: No pericardial effusion. (No Signature Object) Patient: ZANE RHODES Study Date: 07/27/2017 Page 2 of 2 03:57 PM [id number]
[2017-07-28] MEDS: D5W NS 1,000 ML IV SCH (10:18)
[2017-07-28] MEDS: AZITHROMYCIN IV 500 MG in NS 250 ML IV SCH (10:18)
[2017-07-28] MEDS: LORazepam 1 MG TAB PO SCH ×2 (11:19→18:28)
[2017-07-28] MEDS ORDERED: LIDOCAINE 1% 300 MG/30 ML SDV ONE (11:56)
[2017-07-28] MEDS: LORazepam 2 MG/ML INJ IVP SCH ×3 (12:05→21:37)
[2017-07-28] MEDS: HALOPERIDOL LACT 5 MG/ML INJ IVP PRN ×3 (13:58→20:34)
[2017-07-28] MEDS ORDERED: POTASSIUM Cl (KCl) 50 ML IV SCH (14:00)
[2017-07-28] MEDS: POTASSIUM Cl (KCl) 10 MEQ in D5W 50 ML IV SCH ×3 (14:21→16:27)
[2017-07-28] MEDS ORDERED: CALCIUM GLUCONATE 50 ML IV ONE (15:55)
[2017-07-28] MEDS ORDERED: CALCIUM GLUCONATE 1 GM in D5W 50 ML IV ONE (16:30)
[2017-07-28] MEDS ORDERED: LOPERAMIDE HCL 2 MG CAP PO PRN (17:17)
[2017-07-28] MEDS ORDERED: HALOPERIDOL LACT 5 MG/ML INJ IVP PRN (20:51)
--- NOTE | 2017-07-28 21:21 | HOSPPROG ---
Hospitalist Progress Note Assessment/Plan: 50 minutes of additional critical care time spent, at bedside, in ICU, coordinating with patient's nurses, addressing the following: - contacted by patient's RN regarding escalating agitation 2/2 EtOH withdraw, patient unsafely trying to get out of bed and not cooperating with care, despite receiving precedex gtt, scheduled ativan, PRN ativan - reviewed chart, he is critically ill from cardiomyopathy, likely 2/2 EtOH/ cocaine, as well as recent viral illness, and he is currently on 75% vapotherm and dobutamine gtt for acute systolic CHF exacerbation, with significant effusions/pulm edema on CXR, w/ e/o demand ischemia (elevated trop), electrolyte deficiencies (hypokalemia, hypomagnesemia, hypocalcemia) - physical exam revealed a patient intermittently agitated, but resting calmly between episodes, but episodes are impulsive and unpredictable, acutely encephalopathic and disoriented/unable to follow commands, reduced breath sounds bilat bases, insp crackles bilat, tachycardic, no LE edema - tele remains tachy w/ TWI and STD, SBP 120s - begin wrist restraints, responded to 5mg IV haldol and cont PRN for breakthrough, increased scheduled ativan to 2mg q4 IV, can increase to 4mg q4 if requiring additional haldol tonight (prefer ativan > haldol) - patient does not have capacity to make medical decisions, placed on Detainer and recommended that nursing staff coordinate w/ security if patient is dangerously attempting to get out of bed/leave - given his risk of ventricular arrhythmias from use of benzos and antipsychotics, get K/Mg/Ca now and replete completely o/n via IV - reviewed today's EKG, QTc approx 500 w/ TWI inferolaterally, will repeat EKG in AM to monitor QTc, and RN will monitor tele for ventricular arrhythmias - although deepening patient's sedation w/ ativan and conscious sedation for intubation may be required, at the present time I would recommend ongoing abilio Ativan, PRN haldol, restraints and reassurance, in attempt to keep the patient from possible complications of vent/sedation - if patient's o2 requirements rise on vapotherm or his w/d is uncontrolled w/ above methods, then RN will coordinate w/ hospitalist and intubation may be pursued Objective: Vital Signs Temp Pulse Resp BP Pulse Ox 37 C 115 H 42 H 109/76 92 07/28/17 16:00 07/28/17 19:30 07/28/17 19:30 07/28/17 19:30 07/28/17 20:42 Laboratory Results 07/28/17 04:50 07/28/17 12:25 07/27/17 07/28/17 07/29/17 05:59 05:59 05:59 Intake Total 3648 2177 Output Total 300 1500 Balance 3348 677 PT 13.3 SEC (12.0-15.0) 07/27/17 12:00 INR 0.99 (0.83-1.16) 07/27/17 12:00 ICD10 Worksheet Patient Problems: Problems Problem Status Onset Pneumonia Acute
[2017-07-28] MEDS: DEXTROSE IV SCH (21:37)
[2017-07-28] MEDS: DOBUTAMINE IV SCH (21:37)
[2017-07-28] MEDS ORDERED: ETOMIDATE 40 MG/20 ML INJ IVP ONE (21:46)
[2017-07-28] MEDS ORDERED: SUCCINYLCHOLINE CHLORIDE 200 MG/10 ML VIAL IVP ONE (21:46)
[2017-07-28] MEDS ORDERED: fentaNYL/NACL 100 ML IV SCH (22:00)
[2017-07-28] MEDS ORDERED: PROPOFOL/EMULSION 100 ML IV SCH (22:00)
[2017-07-28] MEDS ORDERED: SUCCINYLCHOLINE CHLORIDE 200 MG/10 ML SYR IVP ONE (22:00)
[2017-07-28] MEDS ORDERED: fentaNYL 100 MCG/2 ML INJ IVP ONE (22:00)
[2017-07-28] MEDS: PROPOFOL/EMULSION 100 ML IV SCH (22:10)
[2017-07-28] MEDS ORDERED: MAGNESIUM SULF 2 GM/WATER 50 ML IV ONE (22:24)
[2017-07-28] MEDS ORDERED: POTASSIUM Cl (KCl) 50 ML IV ONE (22:24)
[2017-07-28] MEDS ORDERED: FUROSEMIDE 20 MG/2 ML VIAL IVP ONE (22:55)
--- NOTE | 2017-07-28 22:55 | EDPHY ---
BELEN Addendum - Addendum .: Indication for the procedure was alcohol withdrawal, respiratory failure. The patient was preoxygenated with 100% oxygen by face mask. The patient was sedated with 20 mg of IV etomidate and paralyzed with 200 mg of succinylcholine. The patient was orally endotracheally intubated under direct visualization with a 7.5 ETT. Tracheal intubation was confirmed with misting on the tube; breath sounds were auscultated equally bilaterally; appropriate color change with [place] CO2 detector, capnography waveform is appropriate, oxygen saturation after procedure is 92%. Chest X-ray shows ETT slightly high. Diffuse pneumonitis bilaterally, worse on the right versus the left. The procedure was performed by myself. I see use staff notified at 10: 55 p.m. To push the ET tube down 1-2 cm.
--- NOTE | 2017-07-28 23:54 | CPEKG ---
Heart Rate: 112 RR Interval: 536 P-R Interval: 176 QRSD Interval: 86 QT Interval: 352 QTC Interval: 481 P [place]: 67 QRS [place]: 35 T Wave [place]: -45 EKG Severity - ABNORMAL ECG - EKG Impression: SINUS TACHYCARDIA EKG Impression: PROBABLE LEFT ATRIAL ABNORMALITY EKG Impression: LOW VOLTAGE IN FRONTAL LEADS EKG Impression: PROBABLE LVH WITH SECONDARY REPOL ABNRM. HOWEVER,CAN'T RULE OUT ANTEROLATERAL EKG Impression: ISCHEMIA. LESS T WAVE INVERSION NOTED IN STANDARD LEADS COMPARED TO JULY 28, EKG Impression: 2017, 5:45. EKG Impression: BORDERLINE PROLONGED QT INTERVAL EKG Impression: Slow R-wave progression Electronically Signed By: Maikel Hu 29-Jul-2017 07:03:18
[2017-07-29] MEDS: PROPOFOL/EMULSION 100 ML IV SCH ×5 (00:40→19:33)
[2017-07-29] MEDS: LORazepam 1 MG TAB PO SCH ×2 (00:51→06:44)
[2017-07-29] MEDS: LORazepam 2 MG/ML INJ IVP SCH ×3 (03:04→11:20)
[2017-07-29] MEDS: D5W NS 1,000 ML IV SCH ×2 (05:09→19:34)
[2017-07-29 05:43] LABS: PLATELET COUNT 90 10^3/uL (150-400)
[2017-07-29] MEDS ORDERED: POTASSIUM Cl (KCl) 50 ML IV ONE ×2 (06:39→13:51)
[2017-07-29] MEDS ORDERED: CALCIUM GLUCONATE 50 ML IV ONE (06:39)
[2017-07-29] MEDS ORDERED: CALCIUM GLUCONATE 1 GM in D5W 50 ML IV ONE (07:00)
[2017-07-29] MEDS: CHLORHEXIDINE GLUCONATE 15 ML UDL PO SCH ×2 (07:59→19:35)
--- NOTE | 2017-07-29 08:57 | CPEKG ---
Heart Rate: 97 RR Interval: 619 P-R Interval: 152 QRSD Interval: 82 QT Interval: 436 QTC Interval: 554 P [place]: 59 QRS [place]: 37 T Wave [place]: 233 EKG Severity - ABNORMAL ECG - EKG Impression: SINUS RHYTHM EKG Impression: PROBABLE LEFT ATRIAL ABNORMALITY EKG Impression: DIFFUSE T-WAVE INVERSION. CONSIDER ISCHEMIA.THE T-WAVE INVERSION IN THE EKG Impression: INFERIOR LEADS IS NEW SINCE JULY 28, 2017. EKG Impression: PROLONGED QT INTERVAL Electronically Signed By: Maikel Hu 29-Jul-2017 12:16:26
[2017-07-29] MEDS: AZITHROMYCIN IV 500 MG in NS 250 ML IV SCH (09:22)
--- NOTE | 2017-07-29 10:01 | SOAPPROG ---
SOAP Progress Note Assessment/Plan: Assessment: 31 y/o man with no previous cardiac problems or cardiac work up. He drinks 6-7 alcohol drinks per day x ten years and frequent, recent cocaine use with one week of URI symptoms and green sputum production and now rapidly worsening shortness of breath at rest. Stat bedside echo shows LV enlargement (consistent with chronic CHF) with LVEF 10-15% and global hypokinesis, mild RV dysfunction, severe MR without MV prolapse and moderate TR with estimated PAS 44mmHg, trivial pericardial effusion with no tamponade, no pleural effusion and normal trileaflet AV with no or AI. He required intubation with mechanical ventilation last night for worsening ETOH withdrawls and decreased mentation. Got one dose of IV lasix and diuresed > 3000cc. CVP today 5mmHg. REC: 1)continue IV DBT at 5mch/kg/min to support him next several days during worst part of ETOH w/d and URI 2)consider placing dobhoff feeding tube and continue Lisinopril 5mg PT daily if SBP > 90 3)no beta blockers yet both for CHF or ETOH w/d purposes as CHF very tenous 4)goal CVP 5-10. Adjust IVF rate or give PRN IV lasix if out of that range. 5)consider SQ lovenox DVT prophylaxis. 6)doubt TWI inversions on ecg secondary to obstructive CAD but will do L/R cardiac cath later in hospitalization to rule out CAD as etiology of his newly diagnosed CHF. 07/29/17 09:56 Subjective: intubated. Sedated. Objective: Vital Signs Temp Pulse Resp BP Pulse Ox 36.2 C 96 10 L 95/62 L 98 07/29/17 08:00 07/29/17 09:00 07/29/17 09:00 07/29/17 09:00 07/29/17 09:00 Microbiology 07/29/17 03:15 - Final Sputum, Expectorated Laboratory Results 07/29/17 05:30 07/29/17 05:30 07/28/17 07/29/17 07/30/17 05:59 05:59 05:59 Intake Total 3648 3350 Output Total 300 4600 Balance 3348 -1250 PT 13.3 SEC (12.0-15.0) 07/27/17 12:00 INR 0.99 (0.83-1.16) 07/27/17 12:00 Physical Exam - Physical Exam General Appearance: other (intubated and sedated.) EENT: normal ENT inspection Neck: non-tender Respiratory: crackles (bases) Cardiac/Chest: JVD, tachycardia, systolic murmur, No gallop Peripheral Pulses: 2+: carotid (R), carotid (L), femoral (R), femoral (L), dorsalis-pedis (R), dorsalis-pedis (L) Abdomen: non-tender, No guarding, No rebound Skin: warm/dry Extremities: No pedal edema Neuro/Psych: depressed affect ICD10 Worksheet Patient Problems: Problems Problem Status Onset Pneumonia Acute
[2017-07-29] MEDS: FAMOTIDINE 20 MG/NACL 50 ML IV SCH ×2 (10:44→22:06)
[2017-07-29] MEDS: ENOXAPARIN 40 MG/0.4 ML SYR SC SCH (11:15)
[2017-07-29] MEDS: LISINOPRIL 5 MG TAB TUBE SCH (11:16)
[2017-07-29] MEDS: MULTIVITAMINS 1 EACH TAB PO SCH (11:16)
[2017-07-29] MEDS: FOLIC ACID 1 MG TAB TUBE SCH (11:16)
[2017-07-29] MEDS: NICOTINE 21 MG/24 HR PATCH TD SCH (11:18)
[2017-07-29] MEDS: FOLIC ACID 1 MG TAB PO SCH (11:19)
[2017-07-29] MEDS: LISINOPRIL 5 MG TAB PO SCH (11:20)
[2017-07-29] MEDS ORDERED: ONDANSETRON DISINTEGRATING 4 MG TAB TUBE PRN (11:30)
[2017-07-29] MEDS ORDERED: ACETAMINOPHEN 325 MG TAB TUBE PRN (11:30)
[2017-07-29] MEDS: fentaNYL/NACL 100 ML IV SCH ×2 (12:16→22:07)
--- NOTE | 2017-07-29 12:28 | ASMTCMCOM ---
CM Note CM Note Notes: Patient now vented and going through W/D. Spoke to patient's Funmi bell who was interested in Substance Education and Tx res as well as Manoj altamirano in [facility]. Funmi would also like to assist in getting patient on Medicaid. Spoke with Medicaid Specialist who will meet with Funmi after 3:00 PM today. Substance Resources gathered and given to Funmi. Date Signed: 07/29/2017 12:28 PM Electronically Signed By:Eri Graham LCSW
[2017-07-29] MEDS ORDERED: LORazepam 2 MG/ML INJ IVP PRN (13:04)
--- NOTE | 2017-07-29 13:09 | HOSPPROG ---
Hospitalist Progress Note Assessment/Plan: 31 yo M with limited PMH other than etoh and cocaine abuse admitted with acute hypoxic respiratory failure and acute systolic chf # acute hypoxic respiratory failure: overnight due to increased agitation and need for higher doses of sedation, patient urgently intubated. Requiring 50% FiO2 on vent. Most recent xray personally reviewed and interpreted with bilateral infiltrates as well as bilateral pleural effusions. 2/2 next as well as pna # acute systolic heart failure: likely acute on chronic picture with LV enlargement c/w more chronic CHF, LVEF noted to be 10-15% with global hypokinesis and VHD. Hypotensive 2/2 cardiogenic shock and being treated with dobutamine overnight, goal SBP > 90--may also require dopamine as bp remains soft. Will need L/R heart cath in coming days, appreciate cardiology input. Starting lisinopril but holding off on BB until off of dobutamine. Appears euvolemic. # pna: with URI sxs preceding hospitalization and pulmonary infiltrates 2/2 chf but also difficult to rule out concurrent infectious process. Procalcitonin very low, resp PCR negative, cultures with ngtd. # cardiogenic shock: stable now on dobutamine, will likely wean in coming 1-2 days # VHD: echo showing severe MR and moderate TR, PAS of 44mmHg # etoh abuse and withdrawal: agitation remains significant and very difficult to control. Now on propofol and will try to transition to versed as patient still at risk for etoh w/d and w/d seizures, prn ativan as well. Will dc haldol given prolonged qt # prolonged qt: noted on personal review of ecg, avoiding qt prolonging meds and keeping mag replete # cocaine abuse: initially denying, utox +. Encouraging cessation # hypoglycemia: in setting of no po intake for extended period, continue d5ns # IP status, high risk requiring ICU level care > 40 min of critical care time spent on this patient as above. Care plan reviewed with Dr. Corral. Subjective: no significant overnight events, patient is currently intubated/ sedated but has been very agitated intermittently overnight Objective: Vital Signs Temp Pulse Resp BP Pulse Ox 36.2 C 104 H 12 98/68 L 95 07/29/17 12:00 07/29/17 12:00 07/29/17 12:00 07/29/17 12:00 07/29/17 12:00 Microbiology 07/29/17 03:15 - Final Sputum, Expectorated Laboratory Results 07/29/17 05:30 07/29/17 05:30 07/28/17 07/29/17 07/30/17 05:59 05:59 05:59 Intake Total 3648 3350 Output Total 300 4600 Balance 3348 -1250 PT 13.3 SEC (12.0-15.0) 07/27/17 12:00 INR 0.99 (0.83-1.16) 07/27/17 12:00 agitated alert anicteric op clear tachy regular no mrg coarse bs with bibasilar rales tachypneic soft nt nd no cce warm dry well perfused agitated anxious ICD10 Worksheet Patient Problems: Problems Problem Status Onset Pneumonia Acute
[2017-07-29] MEDS ORDERED: MIDAZOLAM HCL 50 MG in NS 50 ML IV SCH (13:15)
[2017-07-29] MEDS ORDERED: MIDAZOLAM HCL 50 MG in NS 50 ML IV PRN (13:19)
[2017-07-29] MEDS: MIDAZOLAM 2 MG/2 ML VIAL IVP PRN ×5 (13:30→19:30)
[2017-07-29] MEDS ORDERED: ALBUMIN 25% 100 ML IV ONE (14:45)
--- NOTE | 2017-07-29 15:06 | PDINTPN ---
[employer] Progress Note Assessment/Plan: Assessment/plan: 31 M with history of polysubstance abuse (cocaine, MJ, etoh) presented with URI complaints and mild hypoxemia, and CXR showed mild patchy infiltrates with lactate 2.7. He was treated initially on the floor for CAP with abx, IVF but an echo showed an EF 10-15% and evidence of chronic cardiomyopathy. His hypoxemia continued to worsen and he was transferred to the ICU 07/28 with a NRB followed by intubation late the same day. 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 Remains on DBT and cardiology recs noted. BP is marginal today and dropped to 70s with versed per director of medical staff services. Diuresis achieved overnight with minimal vent support. DHT placement today and will resume SAFIA * Acute hypoxic respiratory failure with mechanical ventilation- I suspect his severe CHF and MR are the primary cause since he had no wbc, no fever, and a very low procalcitonin. He is on minimal vent support now, but plan to remain vented the next few days while going through etoth wd. Daily wake up indicated. Abx dc'd today. Check HIV * Sedation- he is currently on precedex and propofol and fentanyl, but was easily agitated with minimal stim, so versed was attempted, resulting in hypotension. This was treated with single dose 100 ml 25% albumin and will reconsider sedation cocktail- could increased precedex, resume scheduled ativan (I favor, given hx anxiety) * ETOH wd- symptoms reported to me were fairly convincing. Continue with sedation as above and vent. CIWA once extubated * critical care time 65 minutes with multiorgan failure Subjective: required intubation overnight Objective: Vital Signs Temp Pulse Resp BP Pulse Ox 36.2 C 108 H 12 98/64 L 95 07/29/17 12:00 07/29/17 13:49 07/29/17 13:49 07/29/17 13:49 07/29/17 13:49 Microbiology 07/29/17 03:15 - Final Sputum, Expectorated Laboratory Results 07/29/17 05:30 07/29/17 13:00 07/28/17 07/29/17 07/30/17 05:59 05:59 05:59 Intake Total 3648 3350 Output Total 300 4600 Balance 3348 -1250 PT 13.3 SEC (12.0-15.0) 07/27/17 12:00 INR 0.99 (0.83-1.16) 07/27/17 12:00 Physical Exam - Physical Exam General Appearance: no apparent distress, obtunded EENT: PERRL/EOMI, ET tube Neck: supple Respiratory: lungs clear, normal breath sounds, decreased breath sounds, No respiratory distress Cardiac/Chest: regular rate, rhythm, No edema Abdomen: non-tender, soft, No distended Skin: normal color, warm/dry, No cyanosis Lymphatic: no adenopathy Extremities: No pedal edema Neuro/Psych: cognition abnormalities, other (sedated on vent) ICD10 Worksheet Patient Problems: Problems Problem Status Onset Pneumonia Acute
[2017-07-29] MEDS: LORazepam 2 MG/ML INJ IV SCH (17:00)
[2017-07-29] MEDS: DEXMEDETOMIDINE IN 0.9 % NACL 100 ML IV SCH (17:20)
[2017-07-29 19:16] LABS: HIV TYPE 1 AND 2 NEGATIVE (NEGATIVE)
[2017-07-30] MEDS: PROPOFOL/EMULSION 100 ML IV SCH ×5 (00:53→19:50)
[2017-07-30] MEDS: LORazepam 2 MG/ML INJ IV SCH ×5 (00:54→23:41)
[2017-07-30] MEDS: DEXMEDETOMIDINE IN 0.9 % NACL 100 ML IV SCH ×4 (02:39→23:47)
[2017-07-30] MEDS: MIDAZOLAM 2 MG/2 ML VIAL IVP PRN (03:58)
[2017-07-30 05:00] LABS: PLATELET COUNT 96 10^3/uL (150-400)
[2017-07-30] MEDS: fentaNYL/NACL 100 ML IV SCH ×3 (06:20→21:41)
[2017-07-30] MEDS: D5W NS 1,000 ML IV SCH ×2 (06:23→08:35)
[2017-07-30] MEDS ORDERED: CALCIUM GLUCONATE 50 ML IV ONE (06:34)
[2017-07-30] MEDS ORDERED: CALCIUM GLUCONATE 1 GM in D5W 50 ML IV ONE (07:00)
[2017-07-30] MEDS: DEXTROSE IV SCH (08:34)
[2017-07-30] MEDS: DOBUTAMINE IV SCH (08:34)
[2017-07-30] MEDS: THIAMINE HCL 500 MG in NS 100 ML IV SCH (08:35)
--- NOTE | 2017-07-30 08:39 | CPEKG ---
Heart Rate: 97 RR Interval: 619 P-R Interval: 156 QRSD Interval: 84 QT Interval: 404 QTC Interval: 513 P Holmes: 57 QRS Holmes: 16 T Wave Holmes: 219 EKG Severity - ABNORMAL ECG - EKG Impression: SINUS RHYTHM EKG Impression: LOW VOLTAGE IN FRONTAL LEADS EKG Impression: ABNORMAL T, PROBABLE ISCHEMIA, ANT-LAT LEADS EKG Impression: PROLONGED QT INTERVAL EKG Impression: No significant change from July 29, 2017 Electronically Signed By: Maikel Hu 30-Jul-2017 10:44:46
[2017-07-30] MEDS: FAMOTIDINE 20 MG/NACL 50 ML IV SCH ×2 (09:18→20:09)
[2017-07-30] MEDS: CHLORHEXIDINE GLUCONATE 15 ML UDL PO SCH ×2 (09:18→19:50)
[2017-07-30] MEDS: ENOXAPARIN 40 MG/0.4 ML SYR SC SCH (09:19)
[2017-07-30] MEDS: LISINOPRIL 5 MG TAB TUBE SCH (09:19)
[2017-07-30] MEDS: NICOTINE 21 MG/24 HR PATCH TD SCH (09:19)
[2017-07-30] MEDS: FOLIC ACID 1 MG TAB TUBE SCH (09:19)
--- NOTE | 2017-07-30 10:36 | HOSPPROG ---
Hospitalist Progress Note Assessment/Plan: # acute resp failure - d/t pulm edema - cont mechanical ventilation # acute encephalopathy - was very agitated, now sedated; likely d/t etOH and polysubstance withdrawal # acute sCHF exacerbation/cardiogenic shock - currently on dobutamine - diuresis per cardiology # cardiomyopathy, likely non-ischemic - will get cath soon per cardiology - cont lisinopril, holding off on BB currently # VHD - mod/severe MR, mod TR # etOH/polysubstance abuse and withdrawal - now sedated - cont propofol, ativan, fentanyl, precedex # macrocytosis/thrombocytopenia Subjective: sedated, appears comfortable Objective: Vital Signs Temp Pulse Resp BP Pulse Ox 36.4 C 105 H 12 106/80 99 07/30/17 08:00 07/30/17 09:00 07/30/17 09:00 07/30/17 09:19 07/30/17 09:00 Microbiology 07/29/17 03:15 - Final Sputum, Expectorated Laboratory Results 07/30/17 04:50 07/30/17 04:50 07/29/17 07/30/17 07/31/17 05:59 05:59 05:59 Intake Total 3350 4188 Output Total 4600 1725 Balance -1250 2463 PT 13.3 SEC (12.0-15.0) 07/27/17 12:00 INR 0.99 (0.83-1.16) 07/27/17 12:00 40 mins floor critical care time - Physical Exam Constitutional: other (intubated, sedted) Ears, Nose, Mouth, Throat: other (NGT) Cardiovascular: regular rate and rhythym, no murmur, rub, or gallop Respiratory: other (ET tube, coarse BS; mild crackles) Gastrointestinal: soft, non-tender abdomen, no palpable masses ICD10 Worksheet Patient Problems: Problems Problem Status Onset Pneumonia Acute
--- NOTE | 2017-07-30 11:09 | SOAPPROG ---
[facility] Progress Note Assessment/Plan: 1. CM - Pt presents with a new diagnosis of CM. DDX includes ETOH/cocaine CM, MR, and ischemic. Given mitral valve is structurally normal this makes this a less likely cause. Anticipate angiogram when acute issues resolve to exclude CAD. 2. CHF - Pt presents with an acute CHF exacerbation. Weight is up 3 KG. I > O by 2.4 L. CVP = 6. Volume retention likely secondary to recent addition IVF at 100 ml / hr. --> Decrease IVF --> Consider lasix if not running net neutral --> Continue dobutamine --> Continue lisinopril --> Consider coreg when dobutamine is off 3. ETOH withdrawl - HR will be elevated secondary to dobutamine and man not be an indicator of status. 07/30/17 11:10 Subjective: Pt intubated and sedate I > O by 2.4 L, recent IVF at 100 ml/hr Objective: Vital Signs Temp Pulse Resp BP Pulse Ox 36.4 C 105 H 12 106/80 99 07/30/17 08:00 07/30/17 09:00 07/30/17 09:00 07/30/17 09:19 07/30/17 09:00 Microbiology 07/29/17 03:15 - Final Sputum, Expectorated Laboratory Results 07/30/17 04:50 07/30/17 04:50 07/29/17 07/30/17 07/31/17 05:59 05:59 05:59 Intake Total 3350 4188 Output Total 4600 1725 Balance -1250 2463 PT 13.3 SEC (12.0-15.0) 07/27/17 12:00 INR 0.99 (0.83-1.16) 07/27/17 12:00 Physical Exam - Physical Exam General Appearance: other (Sedate) Respiratory: lungs clear Cardiac/Chest: tachycardia, systolic murmur Abdomen: soft Skin: normal color Extremities: No pedal edema ICD10 Worksheet Patient Problems: Problems Problem Status Onset Pneumonia Acute
[2017-07-30] MEDS ORDERED: THIAMINE HCL 100 MG TAB PO SCH (13:27)
--- NOTE | 2017-07-30 15:04 | PDINTPN ---
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 He was treated initially on the floor for CAP with abx, IVF but an echo showed an EF 10-15% and evidence of chronic cardiomyopathy. His hypoxemia continued to worsen and he was transferred to the ICU 07/28 with a NRB followed by intubation late the same day. 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 Remains on DBT and cardiology recs noted. BP stable without support today * Acute hypoxic respiratory failure with mechanical ventilation- I suspect his severe CHF and MR are the primary cause since he had no wbc, no fever, and a very low procalcitonin. He is on minimal vent support now, but plan to remain vented the next few days while going through etoh wd. Daily wake up indicated. Abx dc'd 07/29. HIV negative * Sedation- he is currently on precedex and propofol and fentanyl, as well as scheduled ativan with both adequate sedation and hemodynamic stability * ETOH wd- symptoms reported to me were fairly convincing. Continue with sedation as above and vent. CIWA once extubated * critical care time 45 minutes with multiorgan failure 07/30/17 15:02 Subjective: BP labile overnight while sedation worked out. Much better today Objective: Vital Signs Temp Pulse Resp BP Pulse Ox 36.4 C 103 H 12 96/69 L 98 07/30/17 08:00 07/30/17 13:00 07/30/17 13:00 07/30/17 13:00 07/30/17 13:00 Microbiology 07/29/17 03:15 - Final Sputum, Expectorated Laboratory Results 07/30/17 04:50 07/30/17 12:20 07/29/17 07/30/17 07/31/17 05:59 05:59 05:59 Intake Total 3350 4188 Output Total 4600 1725 Balance -1250 2463 PT 13.3 SEC (12.0-15.0) 07/27/17 12:00 INR 0.99 (0.83-1.16) 07/27/17 12:00 Physical Exam - Physical Exam General Appearance: no apparent distress, obtunded EENT: PERRL/EOMI, ET tube Neck: supple Respiratory: lungs clear, normal breath sounds, No respiratory distress, No accessory muscle use Cardiac/Chest: regular rate, rhythm, No edema Abdomen: non-tender, soft, No distended Skin: normal color, warm/dry, No cyanosis Lymphatic: no adenopathy Extremities: No pedal edema Neuro/Psych: cognition abnormalities ICD10 Worksheet Patient Problems: Problems Problem Status Onset Pneumonia Acute
--- NOTE | 2017-07-30 17:08 | ASMTCMCOM ---
CM Note CM Note Notes: Left message for Funmi, patient's fiance re: need for Medical Proxy. She reports that patient's mother is coming into town Saturday afternoon and other family members live in [place]. Funmi was happy to take on that responsibility if agreed upon by his family members. Date Signed: 07/30/2017 05:08 PM Electronically Signed By:Eri Graham LCSW
[2017-07-30] MEDS ORDERED: POTASSIUM Cl (KCl) 50 ML IV ONE (20:31)
[2017-07-31] MEDS: PROPOFOL/EMULSION 100 ML IV SCH ×3 (01:47→14:41)
[2017-07-31 04:38] LABS: PLATELET COUNT 96 10^3/uL (150-400)
[2017-07-31] MEDS: LORazepam 2 MG/ML INJ IV SCH ×4 (05:35→23:17)
[2017-07-31] MEDS: fentaNYL/NACL 100 ML IV SCH ×2 (05:45→14:41)
[2017-07-31] MEDS ORDERED: MAGNESIUM SULF 1 GM/DEXTROSE 100 ML IV ONE (06:15)
[2017-07-31] MEDS: ENOXAPARIN 40 MG/0.4 ML SYR SC SCH (07:44)
[2017-07-31] MEDS: CHLORHEXIDINE GLUCONATE 15 ML UDL PO SCH ×2 (08:14→20:33)
[2017-07-31] MEDS: FAMOTIDINE 20 MG/NACL 50 ML IV SCH (08:14)
[2017-07-31] MEDS: NICOTINE 21 MG/24 HR PATCH TD SCH (08:14)
[2017-07-31] MEDS: FOLIC ACID 1 MG TAB TUBE SCH (08:15)
[2017-07-31] MEDS: LISINOPRIL 5 MG TAB TUBE SCH (08:15)
[2017-07-31] MEDS: THIAMINE HCL 100 MG TAB TUBE SCH (08:15)
[2017-07-31] MEDS: FAMOTIDINE 20 MG TAB TUBE SCH ×2 (09:11→20:33)
--- NOTE | 2017-07-31 10:11 | HOSPPROG ---
Hospitalist Progress Note Assessment/Plan: # acute resp failure - d/t pulm edema - cont mechanical ventilation # acute encephalopathy - was very agitated, now sedated on ativan, propofol, precedex, fentanyl; likely d/t etOH and polysubstance withdrawal # acute sCHF exacerbation/cardiogenic shock - currently on dobutamine - diuresis per cardiology; trying to run net even; stopped IVF yesterday # cardiomyopathy, likely non-ischemic - will get cath soon per cardiology - cont lisinopril, holding off on BB currently # VHD - mod/severe MR, mod TR # etOH/polysubstance abuse and withdrawal - now sedated - cont propofol, ativan, fentanyl, precedex # macrocytosis/thrombocytopenia Subjective: no significant change; remains sedated and ventilated Objective: Vital Signs Temp Pulse Resp BP Pulse Ox 37.1 C 101 H 14 95/66 L 98 07/31/17 08:00 07/31/17 09:00 07/31/17 09:00 07/31/17 09:00 07/31/17 09:00 Microbiology 07/29/17 03:15 - Final Sputum, Expectorated Laboratory Results 07/31/17 04:25 07/31/17 04:25 07/30/17 07/31/17 08/01/17 05:59 05:59 05:59 Intake Total 4188 3151.0 Output Total 1725 1110 Balance 2463 2041.0 PT 13.3 SEC (12.0-15.0) 07/27/17 12:00 INR 0.99 (0.83-1.16) 07/27/17 12:00 40 mins floor CC time managing cardiogenic shock and resp failure - Physical Exam Constitutional: other (ETT, NGT) Cardiovascular: no murmur, rub, or gallop, tachycardia Respiratory: other (coarse BS), No inspiratory crackles Gastrointestinal: soft, non-tender abdomen, no palpable masses ICD10 Worksheet Patient Problems: Problems Problem Status Onset Pneumonia Acute
[2017-07-31] MEDS: DOBUTamine 500 MG in D5W 250 ML IV SCH (11:01)
--- NOTE | 2017-07-31 11:40 | SOAPPROG ---
SOAP Progress Note Assessment/Plan: Assessment: 31 y/o man with no previous cardiac problems or cardiac work up. He drinks 6-7 alcohol drinks per day x ten years and frequent, recent cocaine use with one week of URI symptoms and green sputum production and now rapidly worsening shortness of breath at rest. Stat bedside echo shows LV enlargement (consistent with chronic CHF) with LVEF 10-15% and global hypokinesis, mild RV dysfunction, severe MR without MV prolapse and moderate TR with estimated PAS 44mmHg, trivial pericardial effusion with no tamponade, no pleural effusion and normal trileaflet AV with no or AI. He required intubation with mechanical ventilation for worsening ETOH withdrawls and decreased mentation. Overall he is hemodynamically stable and on serial physical exams by me has lost his S3 gallop. REC: 1)lasix 20mg IV x one now 2)increase Lisinopril to 10mg PT qam starting tomorrow. 3)keep at current dose of IV DVT (4.5 mcg/kg/min) until extubated and then start to wean off over 24-36hrs. 4)L/R cardiac cath NEXT week once extubated and further out of throughs of ETOH w/d 07/31/17 11:35 Subjective: intubated and sedated. No reported ventricular arrhythmias on IV inotropes. Objective: Vital Signs Temp Pulse Resp BP Pulse Ox 37 C 99 16 101/71 94 07/31/17 10:00 07/31/17 11:00 07/31/17 11:00 07/31/17 11:00 07/31/17 11:00 Microbiology 07/29/17 03:15 - Final Sputum, Expectorated Laboratory Results 07/31/17 04:25 07/30/17 07/31/17 08/01/17 05:59 05:59 05:59 Intake Total 4188 3151.0 Output Total 1725 1110 0 Balance 2463 2041.0 0 PT 13.3 SEC (12.0-15.0) 07/27/17 12:00 INR 0.99 (0.83-1.16) 07/27/17 12:00 Physical Exam - Physical Exam General Appearance: other (intubated, sedated.) EENT: normal ENT inspection Neck: non-tender Respiratory: lungs clear Cardiac/Chest: regular rate, rhythm, systolic murmur, No gallop, No JVD Peripheral Pulses: 2+: carotid (R), carotid (L), femoral (R), femoral (L), dorsalis-pedis (R), dorsalis-pedis (L) Abdomen: non-tender, No guarding, No rebound, No hepatomegaly Skin: warm/dry Extremities: No pedal edema Neuro/Psych: depressed affect ICD10 Worksheet Patient Problems: Problems Problem Status Onset Pneumonia Acute
[2017-07-31] MEDS ORDERED: FUROSEMIDE 20 MG/2 ML VIAL IVP ONE (11:41)
[2017-07-31] MEDS: DEXMEDETOMIDINE HCL 1,000 MCG in D5W 250 ML IV SCH (12:50)
--- NOTE | 2017-07-31 15:16 | PDINTPN ---
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 He was treated initially on the floor for CAP with abx, IVF but an echo showed an EF 10-15% and evidence of chronic cardiomyopathy. His hypoxemia continued to worsen and he was transferred to the ICU 07/28 with a NRB followed by intubation late the same day. 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 Remains on DBT and cardiology recs noted. BP remains stable * Acute hypoxic respiratory failure with mechanical ventilation- I suspect his severe CHF and MR are the primary cause since he had no wbc, no fever, and a very low procalcitonin. He is on minimal vent support now, but plan to remain vented the next few days while going through etoh wd. Daily wake up indicated. Abx dc'd 07/29. HIV negative. Lasix given today * Sedation- he is currently on precedex and propofol and fentanyl, as well as scheduled ativan with both adequate sedation and hemodynamic stability * ETOH wd- symptoms reported to me were fairly convincing. Continue with sedation as above and vent. CIWA once extubated * critical care time 45 minutes with multiorgan failure Subjective: stable overnight, but quite agitated on sedation vacation Objective: Vital Signs Temp Pulse Resp BP Pulse Ox 37.2 C 98 15 101/74 96 07/31/17 12:00 07/31/17 14:00 07/31/17 14:00 07/31/17 14:00 07/31/17 14:00 Microbiology 07/29/17 03:15 - Final Sputum, Expectorated Laboratory Results 07/31/17 04:25 07/31/17 11:15 07/30/17 07/31/17 08/01/17 05:59 05:59 05:59 Intake Total 4188 3151.0 Output Total 1725 1110 0 Balance 2463 2041.0 0 PT 13.3 SEC (12.0-15.0) 07/27/17 12:00 INR 0.99 (0.83-1.16) 07/27/17 12:00 Physical Exam - Physical Exam General Appearance: no apparent distress, obtunded EENT: PERRL/EOMI, ET tube Neck: supple Respiratory: lungs clear, normal breath sounds, No respiratory distress, No accessory muscle use Cardiac/Chest: regular rate, rhythm, No edema Abdomen: non-tender, soft, No distended Skin: normal color, warm/dry, No cyanosis Lymphatic: no adenopathy Extremities: No pedal edema Neuro/Psych: cognition abnormalities ICD10 Worksheet Patient Problems: Problems Problem Status Onset Pneumonia Acute
[2017-07-31] MEDS: POTASSIUM Cl (KCl) 10 MEQ in NS 50 ML IV SCH ×3 (21:09→22:52)
[2017-08-01] MEDS: PROPOFOL/EMULSION 100 ML IV SCH ×3 (03:35→20:52)
[2017-08-01 04:30] LABS: PLATELET COUNT 104 10^3/uL (150-400)
[2017-08-01] MEDS: DEXMEDETOMIDINE HCL 1,000 MCG in D5W 250 ML IV SCH ×2 (04:51→15:45)
[2017-08-01] MEDS ORDERED: MAGNESIUM SULF 1 GM/DEXTROSE 100 ML IV ONE (05:09)
[2017-08-01] MEDS ORDERED: CALCIUM GLUCONATE 1 GM in D5W 50 ML IV ONE (05:14)
[2017-08-01] MEDS: LORazepam 2 MG/ML INJ IV SCH ×3 (05:33→20:28)
[2017-08-01] MEDS: ONDANSETRON 4 MG/2 ML VIAL IVP PRN (08:20)
[2017-08-01] MEDS ORDERED: FUROSEMIDE 20 MG/2 ML VIAL IVP ONE (08:26)
--- NOTE | 2017-08-01 08:26 | SOAPPROG ---
SOAP Progress Note Assessment/Plan: Assessment: 31 y/o man with no previous cardiac problems or cardiac work up. He drinks 6-7 alcohol drinks per day x ten years and frequent, recent cocaine use with one week of URI symptoms and green sputum production and now rapidly worsening shortness of breath at rest. Stat bedside echo shows LV enlargement (consistent with chronic CHF) with LVEF 10-15% and global hypokinesis, mild RV dysfunction, severe MR without MV prolapse and moderate TR with estimated PAS 44mmHg, trivial pericardial effusion with no tamponade, no pleural effusion and normal trileaflet AV with no or AI. He required intubation with mechanical ventilation for worsening ETOH withdrawls and decreased mentation. Overall he is hemodynamically stable and on serial physical exams by me has lost his S3 gallop. REC: 1)lasix 20mg IV x one now today 2)rest of meds without changes. 3)once extubated, will start to wean off IV DVT over 24-36hr period 4)L/R cardiac cath probably next week. 08/01/17 08:24 Subjective: remains intubated. Agitated. Objective: Vital Signs Temp Pulse Resp BP Pulse Ox 36.1 C 102 H 25 H 99/69 L 96 08/01/17 06:00 08/01/17 08:02 08/01/17 08:02 08/01/17 06:00 08/01/17 06:00 Microbiology 07/29/17 03:15 - Final Sputum, Expectorated Laboratory Results 08/01/17 04:20 08/01/17 04:20 07/31/17 08/01/17 08/02/17 05:59 05:59 05:59 Intake Total 3151.0 2749.4 70 Output Total 1110 2290 340 Balance 2041.0 459.4 -270 PT 13.3 SEC (12.0-15.0) 07/27/17 12:00 INR 0.99 (0.83-1.16) 07/27/17 12:00 Physical Exam - Physical Exam General Appearance: other (intubated, agitated as lightening sedation) Neck: non-tender Respiratory: crackles Cardiac/Chest: tachycardia, systolic murmur, No gallop, No JVD Peripheral Pulses: 2+: carotid (R), carotid (L), femoral (R), femoral (L), dorsalis-pedis (R), dorsalis-pedis (L) Abdomen: non-tender, No guarding Skin: warm/dry Extremities: No pedal edema Neuro/Psych: other ICD10 Worksheet Patient Problems: Problems Problem Status Onset Pneumonia Acute
[2017-08-01] MEDS: ENOXAPARIN 40 MG/0.4 ML SYR SC SCH (08:48)
[2017-08-01] MEDS: FOLIC ACID 1 MG TAB TUBE SCH (08:49)
[2017-08-01] MEDS: THIAMINE HCL 100 MG TAB TUBE SCH (08:49)
[2017-08-01] MEDS: FAMOTIDINE 20 MG TAB TUBE SCH ×2 (08:50→20:29)
[2017-08-01] MEDS: CHLORHEXIDINE GLUCONATE 15 ML UDL PO SCH ×2 (08:51→20:29)
[2017-08-01] MEDS: NICOTINE 21 MG/24 HR PATCH TD SCH (08:52)
[2017-08-01] MEDS ORDERED: LISINOPRIL 10 MG TAB TUBE SCH (09:00)
--- NOTE | 2017-08-01 11:21 | PDINTPN ---
Ops Manager Progress Note Assessment/Plan: Assessment/plan: 31 M with history of polysubstance abuse (cocaine, MJ, etoh) presented with URI complaints and mild hypoxemia, and CXR showed mild patchy infiltrates with lactate 2.7. He was treated initially on the floor for CAP with abx, IVF but an echo showed an EF 10-15% and evidence of chronic cardiomyopathy. His hypoxemia continued to worsen and he was transferred to the ICU 07/28 with a NRB followed by intubation late the same day. 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 Remains on DBT and cardiology recs noted. BP remains stable without support * Acute hypoxic respiratory failure with mechanical ventilation- I suspect his severe CHF and MR are the primary cause since he had no wbc, no fever, and a very low procalcitonin. He is on minimal vent support now, but plan to remain vented the next few days while going through etoh wd. Daily wake up indicated. Abx dc'd 07/29. HIV negative. Lasix given . Continue vent support today while progressing through etoh wd. May extubate in next 1-2 days. * Sedation- he is currently on precedex and propofol and fentanyl, as well as scheduled ativan with both adequate sedation and hemodynamic stability * ETOH wd- symptoms reported to me were fairly convincing. Continue with sedation as above and vent. CIWA once extubated * critical care time 35 minutes with multiorgan failure 08/01/17 11:20 Subjective: stable overnight. remains agitated/restless off sedation Objective: Vital Signs Temp Pulse Resp BP Pulse Ox 36.1 C 102 H 25 H 98/67 L 94 08/01/17 06:00 08/01/17 08:02 08/01/17 08:02 08/01/17 08:50 08/01/17 07:00 Microbiology 07/29/17 03:15 - Final Sputum, Expectorated Sputum Culture - Final Laboratory Results 08/01/17 04:20 08/01/17 04:20 07/31/17 08/01/17 08/02/17 05:59 05:59 05:59 Intake Total 3151.0 2749.4 70 Output Total 1110 2290 340 Balance 2041.0 459.4 -270 PT 13.3 SEC (12.0-15.0) 07/27/17 12:00 INR 0.99 (0.83-1.16) 07/27/17 12:00 Physical Exam - Physical Exam General Appearance: no apparent distress, obtunded EENT: PERRL/EOMI, ET tube Neck: supple Respiratory: lungs clear, normal breath sounds, decreased breath sounds, No respiratory distress, No accessory muscle use Cardiac/Chest: regular rate, rhythm, No edema Abdomen: non-tender, soft, No distended Skin: normal color, warm/dry, No cyanosis Lymphatic: no adenopathy Extremities: No pedal edema Neuro/Psych: cognition abnormalities ICD10 Worksheet Patient Problems: Problems Problem Status Onset Pneumonia Acute
--- NOTE | 2017-08-01 11:27 | HOSPPROG ---
Hospitalist Progress Note Assessment/Plan: # acute resp failure - d/t pulm edema - cont mechanical ventilation until his withdrawal has resolved # acute encephalopathy - still quite agitated when off sedation - likely d/t etOH and polysubstance withdrawal # acute sCHF exacerbation/cardiogenic shock - currently on dobutamine - diuresis per cardiology; trying to run net even # cardiomyopathy, likely non-ischemic - will get cath soon per cardiology - cont lisinopril, holding off on BB currently # VHD - mod/severe MR, mod TR # etOH/polysubstance abuse and withdrawal - now sedated - cont propofol, ativan, fentanyl, precedex # macrocytosis/thrombocytopenia Subjective: still agitated when sedation weaned Objective: Vital Signs Temp Pulse Resp BP Pulse Ox 36.1 C 101 H 14 93/63 L 95 08/01/17 06:00 08/01/17 09:00 08/01/17 09:00 08/01/17 09:00 08/01/17 09:00 Microbiology 07/29/17 03:15 - Final Sputum, Expectorated Sputum Culture - Final Laboratory Results 08/01/17 04:20 08/01/17 04:20 07/31/17 08/01/17 08/02/17 05:59 05:59 05:59 Intake Total 3151.0 2749.4 70 Output Total 1110 2290 340 Balance 2041.0 459.4 -270 PT 13.3 SEC (12.0-15.0) 07/27/17 12:00 INR 0.99 (0.83-1.16) 07/27/17 12:00 35 mins of floor CC time managing cardiogenic shock and resp failure - Physical Exam Constitutional: uncomfortable Ears, Nose, Mouth, Throat: other (ETT) Cardiovascular: regular rate and rhythym, no murmur, rub, or gallop Respiratory: no respiratory distress, no rales or rhonchi Gastrointestinal: soft, non-tender abdomen, no palpable masses, No hepatosplenomegally, No distension Genitourinary: flores in urethra ICD10 Worksheet Patient Problems: Problems Problem Status Onset Pneumonia Acute
[2017-08-01] MEDS ORDERED: POLYETHYLENE GLYCOL 3350 17 GM PKT PO PRN (16:43)
[2017-08-01] MEDS ORDERED: BISACODYL 10 MG SUPP PR PRN (16:43)
[2017-08-01] MEDS ORDERED: LACTULOSE 20 GM/30 ML UDCUP PO PRN (16:43)
--- NOTE | 2017-08-01 16:50 | ASMTCMCOM ---
CM Note CM Note Notes: Family meeting today with patient's fiance, Funmi and his mother Billie. Both agreed to be proxy for patient and signed the paperwork. Funmi described patient as being outgoing but anxious. Patient has been drinking since age 19 and has attempted suicide by overdose in the past. Per patient's mother, patient took prozac in the 5th grade for anxiety and has also taken Paxil in the past. Patient has been depressed and trying to self medicate. 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 Funmi was tearful and states she cannot go through this with patient again but wants him to get help and commit to sobriety. Patient will need a follow up appointment with both a psychiatrist and a counselor. Will explore possible psych consult to get medication recommendations while patient is in the hospital.Funmi was given alcohol and drug resources and we discussed [employer] for the family members. CM will follow. Date Signed: 08/01/2017 04:50 PM Electronically Signed By:Alexandrea Galindo LCSW
[2017-08-01] MEDS: SENNOSIDES/DOCUSATE SODIUM TAB PO SCH (20:29)
[2017-08-02] MEDS: LORazepam 2 MG/ML INJ IV SCH ×5 (00:38→23:05)
[2017-08-02] MEDS: DOBUTamine 500 MG in D5W 250 ML IV SCH ×2 (00:38→17:54)
[2017-08-02] MEDS: PROPOFOL/EMULSION 100 ML IV SCH ×3 (01:46→11:26)
[2017-08-02] MEDS: DEXMEDETOMIDINE HCL 1,000 MCG in D5W 250 ML IV SCH (04:36)
[2017-08-02] MEDS: MIDAZOLAM 2 MG/2 ML VIAL IVP PRN ×2 (05:15→19:53)
[2017-08-02 05:54] LABS: PLATELET COUNT 132 10^3/uL (150-400)
--- NOTE | 2017-08-02 08:36 | SOAPPROG ---
SOAP Progress Note Assessment/Plan: Assessment: 31 y/o man with no previous cardiac problems or cardiac work up. He drinks 6-7 alcohol drinks per day x ten years and frequent, recent cocaine use with one week of URI symptoms and green sputum production and now rapidly worsening shortness of breath at rest. Stat bedside echo shows LV enlargement (consistent with chronic CHF) with LVEF 10-15% and global hypokinesis, mild RV dysfunction, severe MR without MV prolapse and moderate TR with estimated PAS 44mmHg, trivial pericardial effusion with no tamponade, no pleural effusion and normal trileaflet AV with no or AI. He required intubation with mechanical ventilation for worsening ETOH withdrawls and decreased mentation. He has had more agitation requiring higher doses of sedation gtts and with that DBT has been increased and Dopamine gtt added. Will give a little IVF and run CVP 8-10mmHg. FiO2 0.4 so oxygenating well. PLAN: 1)NS 500cc iv over three hours for CVP 8-10 2)no IV lasix unless CVP > 10 3)change Lisinopril to 5mg PT BID 4)try to wean down DBT to 5mcg/kg/min before touching and weaning Dopamine for SBP > 90 5)L/R cardiac cath probably next week after extubated and ETOH w/d resolved. Discussed with pt's oscar and mom and [employer] Subjective: sedated. Unresponsive. Objective: Vital Signs Temp Pulse Resp BP Pulse Ox 37.1 C 117 H 21 H 98/58 L 94 08/02/17 04:00 08/02/17 08:02 08/02/17 08:02 08/02/17 08:00 08/02/17 08:02 Microbiology 07/29/17 03:15 - Final Sputum, Expectorated Sputum Culture - Final Laboratory Results 08/02/17 05:40 08/02/17 05:40 08/01/17 08/02/17 08/03/17 05:59 05:59 05:59 Intake Total 2749.4 3524.2 Output Total 2290 3690 Balance 459.4 -165.8 PT 13.3 SEC (12.0-15.0) 07/27/17 12:00 INR 0.99 (0.83-1.16) 07/27/17 12:00 Physical Exam - Physical Exam General Appearance: other (intubated and sedated) EENT: PERRL/EOMI Neck: non-tender Respiratory: lungs clear, normal breath sounds Cardiac/Chest: regular rate, rhythm, systolic murmur, No gallop, No JVD Peripheral Pulses: 2+: carotid (R), carotid (L), femoral (R), femoral (L), dorsalis-pedis (R), dorsalis-pedis (L) Abdomen: non-tender, No rebound Skin: warm/dry Extremities: No pedal edema Neuro/Psych: disoriented to person, disoriented to place, disoriented to time ICD10 Worksheet Patient Problems: Problems Problem Status Onset Pneumonia Acute
[2017-08-02] MEDS ORDERED: NS 500 ML IV ONE (08:39)
[2017-08-02] MEDS: ENOXAPARIN 40 MG/0.4 ML SYR SC SCH (08:52)
[2017-08-02] MEDS: CHLORHEXIDINE GLUCONATE 15 ML UDL PO SCH ×2 (08:52→19:57)
[2017-08-02] MEDS: FOLIC ACID 1 MG TAB TUBE SCH (08:53)
[2017-08-02] MEDS: THIAMINE HCL 100 MG TAB TUBE SCH (08:53)
[2017-08-02] MEDS: FAMOTIDINE 20 MG TAB TUBE SCH ×2 (08:53→19:56)
[2017-08-02] MEDS: SENNOSIDES/DOCUSATE SODIUM TAB PO SCH ×2 (08:53→19:57)
[2017-08-02] MEDS ORDERED: LORazepam 1 MG TAB PO SCH (08:54)
[2017-08-02] MEDS ORDERED: LORazepam 2 MG/ML INJ IVP SCH (08:54)
[2017-08-02] MEDS: NICOTINE 21 MG/24 HR PATCH TD SCH (08:56)
[2017-08-02] MEDS: LISINOPRIL 5 MG TAB TUBE SCH ×2 (08:57→23:01)
--- NOTE | 2017-08-02 12:59 | ASMTCMCOM ---
CM Note CM Note Notes: Patient to be extubated today. Spoke with Funmi regarding Medicaid application and if it's approved patient will be eligible for physical rehab programs. Both ray Choudhary and mother Billie remain at patient's bedside. Patient will most likely go for a cardiac cath next week when he is successfully extubated and ETOH w/d is resolved. D/C plan remains TBD. CM will follow. Date Signed: 08/02/2017 12:58 PM Electronically Signed By:Alexandrea Galindo LCSW
--- NOTE | 2017-08-02 13:42 | PDINTPN ---
[employer] Operator [employer] Progress Note Assessment/Plan: Assessment/plan: 31 M with history of polysubstance abuse (cocaine, MJ, etoh) presented with URI complaints and mild hypoxemia, and CXR showed mild patchy infiltrates with lactate 2.7. He was treated initially on the floor for CAP with abx, IVF but an echo showed an EF 10-15% and evidence of chronic cardiomyopathy. His hypoxemia continued to worsen and he was transferred to the ICU 07/28 with a NRB followed by intubation late the same day. 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 Remains on DBT. Cards managing fluid balance. * Acute hypoxic respiratory failure with mechanical ventilation- I suspect his severe CHF and MR are the primary cause. Weaned well today including T-piece without desaturation. Will dc sedation and extubate. * * ETOH wd- symptoms reported to me were fairly convincing. Should be starting to clear from ETOH wd. Observe after extubation. * critical care time 45 minutes Subjective: no events. More interactive this am (on strong sedation) Objective: Vital Signs Temp Pulse Resp BP Pulse Ox 37.2 C 122 H 27 H 112/69 99 08/02/17 09:00 08/02/17 12:00 08/02/17 12:00 08/02/17 12:00 08/02/17 12:00 Microbiology 07/29/17 03:15 - Final Sputum, Expectorated Sputum Culture - Final Laboratory Results 08/02/17 05:40 08/02/17 05:40 08/01/17 08/02/17 08/03/17 05:59 05:59 05:59 Intake Total 2749.4 3524.2 Output Total 2290 3690 Balance 459.4 -165.8 PT 13.3 SEC (12.0-15.0) 07/27/17 12:00 INR 0.99 (0.83-1.16) 07/27/17 12:00 Physical Exam - Physical Exam General Appearance: no apparent distress EENT: PERRL/EOMI, ET tube Neck: supple Respiratory: lungs clear, normal breath sounds, No respiratory distress, No accessory muscle use Cardiac/Chest: regular rate, rhythm, No edema Abdomen: non-tender, soft, distended Skin: normal color, warm/dry, No cyanosis Lymphatic: no adenopathy Extremities: No pedal edema Neuro/Psych: cognition abnormalities ICD10 Worksheet Patient Problems: Problems Problem Status Onset Pneumonia Acute
--- NOTE | 2017-08-02 14:28 | HOSPPROG ---
Hospitalist Progress Note Assessment/Plan: 31 y/o male new to my care 08/02/17 # acute resp failure - d/t pulm edema - attempt to extubate currently underway # acute encephalopathy - likely d/t etOH and polysubstance withdrawal # acute sCHF exacerbation/cardiogenic shock - currently on dobutamine - diuresis per cardiology; trying to run net even # cardiomyopathy, likely non-ischemic - will get cath soon per cardiology - cont lisinopril, holding off on BB currently # VHD - mod/severe MR, mod TR # etOH/polysubstance abuse and withdrawal - now sedated - cont propofol, ativan, fentanyl, precedex # macrocytosis/thrombocytopenia dispo: continue inpatient care and close monitoring in the ICU Subjective: Pt still sedated but breathing indendently off the vent. not following commands Objective: Vital Signs Temp Pulse Resp BP Pulse Ox 37.2 C 122 H 27 H 112/69 99 08/02/17 09:00 08/02/17 12:00 08/02/17 12:00 08/02/17 12:00 08/02/17 12:00 Microbiology 07/29/17 03:15 - Final Sputum, Expectorated Sputum Culture - Final Laboratory Results 08/02/17 05:40 08/02/17 05:40 08/01/17 08/02/17 08/03/17 05:59 05:59 05:59 Intake Total 2749.4 3524.2 Output Total 2290 3690 Balance 459.4 -165.8 PT 13.3 SEC (12.0-15.0) 07/27/17 12:00 INR 0.99 (0.83-1.16) 07/27/17 12:00 - Physical Exam Constitutional: no apparent distress, appears nourished, not in pain Cardiovascular: regular rate and rhythym, no murmur, rub, or gallop Respiratory: no respiratory distress, no rales or rhonchi, clear to auscultation Neurologic: other (aaoxo) ICD10 Worksheet Patient Problems: Problems Problem Status Onset Pneumonia Acute
[2017-08-03] MEDS ORDERED: DEXMEDETOMIDINE IN 0.9 % NACL 100 ML IV SCH (01:00)
[2017-08-03] MEDS: LORazepam 2 MG/ML INJ IV SCH ×4 (05:24→23:40)
[2017-08-03 08:07] LABS: PLATELET COUNT 175 10^3/uL (150-400)
[2017-08-03] MEDS: ONDANSETRON 4 MG/2 ML VIAL IVP PRN ×2 (08:17→18:30)
[2017-08-03] MEDS: CHLORHEXIDINE GLUCONATE 15 ML UDL PO SCH ×2 (10:32→20:12)
[2017-08-03] MEDS: LISINOPRIL 5 MG TAB TUBE SCH ×2 (10:33→20:11)
[2017-08-03] MEDS: NICOTINE 21 MG/24 HR PATCH TD SCH (10:51)
[2017-08-03] MEDS: SENNOSIDES/DOCUSATE SODIUM TAB PO SCH ×2 (10:51→20:11)
[2017-08-03] MEDS: FOLIC ACID 1 MG TAB TUBE SCH (10:51)
[2017-08-03] MEDS: ENOXAPARIN 40 MG/0.4 ML SYR SC SCH (10:51)
[2017-08-03] MEDS: FAMOTIDINE 20 MG TAB TUBE SCH ×2 (10:52→20:11)
--- NOTE | 2017-08-03 10:52 | PDCARPN ---
Cardiology Progress Note Assessment/Plan: Assessment: 1. Cardiomyopathy, LVEF 10-15% 2. Acute systolic congestive heart failure 3. Moderate to severe mitral regurgitation 4. Moderate to severe tricuspid regurgitation 5. History of polysubstance abuse including alcohol and cocaine 6. Alcohol withdrawal Plan: -hold morning dose of lisinopril -if patient maintain systolic blood pressure greater than 95 mm of mercury, will plan to give p.m. Dose of lisinopril -will not add beta-lorenzo at this time -will plan to gradually titrate heart failure medication -patient require left and right heart catheterization early next week 08/03/17 10:48 Subjective: 31-year-old gentleman admitted with acute respiratory failure with acute encephalopathy, systolic congestive heart failure with cardiomyopathy with dilated left ventricular cavity with LVEF of 10-15% coupled with severe mitral and tricuspid regurgitation in the setting of polysubstance abuse including alcohol and cocaine. No previous history of cardiac issues. Patient was extubated yesterday. Currently on nasal cannula. Pressor support with dopamine and dobutamine was discontinued at 2:00 a.m. This morning. Maintaining systolic blood pressure greater than 100. Sinus tach and 106 beats per minute. Rates have gradually decreased over the last 48 hr. Discussed at length with patient, patient's and mother regarding heart failure and medical management. Reviewed/Discussed With: family, multidisciplinary team Objective: Vital Signs (8 Hrs) Pulse Resp BP Pulse Ox 08/03/17 10:33 101/63 08/03/17 10:00 108 H 38 H 101/63 94 08/03/17 09:00 107 H 36 H 93/55 L 97 08/03/17 08:00 104 H 22 H 95/38 L 100 08/03/17 07:00 106 H 23 H 103/67 100 08/03/17 06:00 107 H 23 H 95/38 L 95 08/03/17 05:00 106 H 38 H 98/67 L 94 08/03/17 04:00 109 H 31 H 99/65 L 93 08/03/17 03:00 110 H 29 H 108/71 100 Intake/Output (24 Hrs) 08/02/17 08/03/17 08/04/17 05:59 05:59 05:59 Intake Total 3524.2 1441 Output Total 3690 3200 350 Balance -165.8 -1759 -350 Intake: IV Intake (ml) 450 IV Infused (ml) 2154.2 806 Calcium Gluconate 1 gm In 70 D5w 50 ml @ 120 mls/hr IV ONCE ONE Rx#: [id number] DOBUTamine 500 mg In D5w 107 250 ml @ Titrate IV CONT [facility] Rx#:[id number] DOBUTamine 500 mg In D5w 203 189 250 ml @ Titrate IV CONT PER Rx#:[id number] DOPamine/DEXTROSE 250 ml 1.2 122 @ Titrate IV [facility] Rx# :[id number] Dexmedetomidine HCl 1,000 480 239 mcg In D5w 250 ml @ Per Protocol IV CONT PER Rx#: [id number] Dexmedetomidine HCl 400 250 mcg In Ns 100 ml @ Titrate IV [facility] Rx#: [id number] Propofol/Emulsion 100 ml 634 139 @ Titrate IV [facility] Rx# :[id number] fentaNYL 1,000 mcg In Ns 265 117 100 ml @ Per Protocol IV [facility] Rx#:[id number] fentaNYL/NACL 100 ml @ As 144 Directed IV CONT [facility] Rx# :[id number] Tube Feeding (ml) 1030 135 Tube Flush (ml) 340 50 Output: Urine (ml) 3690 3200 200 Catheter 3690 3200 200 Emesis (ml) 150 Other: Number of Voids Incontinence 1 Number of Stools Catheter 0 Result Diagrams: 08/03/17 08:00 08/03/17 08:00 - Physical Exam Cardiovascular: regular rate and rhythm, systolic murmur Respiratory: reduced air movement Skin: no rashes Neurologic: CN II-XII grossly intact Psychiatric: interactive ICD10 Worksheet Patient Problems: Problems Problem Status Onset Pneumonia Acute
[2017-08-03] MEDS: THIAMINE HCL 100 MG TAB TUBE SCH (10:55)
--- NOTE | 2017-08-03 11:29 | PDINTPN ---
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 He was treated initially on the floor for CAP with abx, IVF but an echo showed an EF 10-15% and evidence of chronic cardiomyopathy. His hypoxemia continued to worsen and he was transferred to the ICU 07/28 with a NRB followed by intubation late the same day. 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 Remains on DBT. Cards managing fluid balance. Anticipate re-echo and cath sometime this week * Acute hypoxic respiratory failure with mechanical ventilation- I suspect his severe CHF and MR are the primary cause. extubated without difficulty now on 2- 3 lpm NC * ETOH wd- symptoms reported to me were fairly convincing. Should be starting to clear from ETOH wd. Scheduled ativan changed to prn. Hold CIWA for now and dc precedex. Observe in ICU * PT/OT Subjective: extubated 08/02. still confused but remains on precedex Objective: Vital Signs Temp Pulse Resp BP Pulse Ox 37.2 C 108 H 38 H 101/63 94 08/02/17 09:00 08/03/17 10:00 08/03/17 10:00 08/03/17 10:33 08/03/17 10:00 Laboratory Results 08/03/17 08:00 08/03/17 08:00 08/02/17 08/03/17 08/04/17 05:59 05:59 05:59 Intake Total 3524.2 1441 Output Total 3690 3200 350 Balance -165.8 -1759 -350 PT 13.3 SEC (12.0-15.0) 07/27/17 12:00 INR 0.99 (0.83-1.16) 07/27/17 12:00 Physical Exam - Physical Exam General Appearance: alert, no apparent distress, other (somnolent) EENT: PERRL/EOMI Neck: supple Respiratory: lungs clear, decreased breath sounds, No respiratory distress, No accessory muscle use Cardiac/Chest: regular rate, rhythm, No edema Abdomen: non-tender, soft, No distended Skin: normal color, warm/dry, No cyanosis Lymphatic: no adenopathy Extremities: No pedal edema Neuro/Psych: alert, normal mood/affect, cognition abnormalities ICD10 Worksheet Patient Problems: Problems Problem Status Onset Pneumonia Acute
[2017-08-03] MEDS ORDERED: HALOPERIDOL 1 MG TAB PO PRN (12:59)
--- NOTE | 2017-08-03 13:03 | HOSPPROG ---
Hospitalist Progress Note Assessment/Plan: 31 y/o male new to my care 08/02/17 # EtOH/polysubstance abuse and withdrawal - CIWA prn # acute resp failure - d/t pulm edema (resolved) extubated 08/02 # acute sCHF exacerbation/cardiogenic shock due to suspected alcohol induced cardiomyopathy - now off pressors - cont care per cards # acute encephalopathy (improving) - likely d/t etOH and polysubstance withdrawal # VHD - mod/severe MR, mod TR # macrocytosis/thrombocytopenia dispo: continue inpatient care and close monitoring in the ICU Subjective: no chest pain or shortness of breath. endorses heavy drinking, but denies cocaine use Objective: Vital Signs Temp Pulse Resp BP Pulse Ox 37.2 C 124 H 22 H 94/56 L 94 08/02/17 09:00 08/03/17 12:00 08/03/17 12:00 08/03/17 12:00 08/03/17 12:00 Laboratory Results 08/03/17 08:00 08/03/17 08:00 08/02/17 08/03/17 08/04/17 05:59 05:59 05:59 Intake Total 3524.2 1441 Output Total 3690 3200 350 Balance -165.8 -1759 -350 PT 13.3 SEC (12.0-15.0) 07/27/17 12:00 INR 0.99 (0.83-1.16) 07/27/17 12:00 - Physical Exam Constitutional: no apparent distress, appears nourished, not in pain Cardiovascular: regular rate and rhythym, no murmur, rub, or gallop Respiratory: no respiratory distress, no rales or rhonchi, clear to auscultation Gastrointestinal: normoactive bowel sounds, soft, non-tender abdomen, no palpable masses ICD10 Worksheet Patient Problems: Problems Problem Status Onset Pneumonia Acute
[2017-08-03] MEDS ORDERED: LORazepam 2 MG/ML INJ IVP SCH (13:18)
[2017-08-03] MEDS: MAGNESIUM HYDROXIDE 30 ML UDCUP PO PRN (13:59)
[2017-08-03] MEDS ORDERED: NS 1,000 ML IV ONE (19:00)
[2017-08-03] MEDS: MELATONIN 3 MG TAB PO PRN (21:52)
[2017-08-04] MEDS ORDERED: QUEtiapine FUMARATE 50 MG TAB PO ONE (00:40)
[2017-08-04] MEDS: LORazepam 2 MG/ML INJ IV SCH (05:21)
[2017-08-04 05:39] LABS: PLATELET COUNT 214 10^3/uL (150-400)
[2017-08-04] MEDS ORDERED: POTASSIUM Cl (KCl) 50 ML IV ONE (08:08)
[2017-08-04] MEDS: FOLIC ACID 1 MG TAB TUBE SCH (09:32)
[2017-08-04] MEDS: SENNOSIDES/DOCUSATE SODIUM TAB PO SCH ×2 (09:33→21:07)
[2017-08-04] MEDS: THIAMINE HCL 100 MG TAB TUBE SCH (09:33)
[2017-08-04] MEDS: LISINOPRIL 5 MG TAB TUBE SCH (09:33)
[2017-08-04] MEDS: MAGNESIUM HYDROXIDE 30 ML UDCUP PO PRN (09:34)
[2017-08-04] MEDS: NICOTINE 21 MG/24 HR PATCH TD SCH (09:35)
[2017-08-04] MEDS: FAMOTIDINE 20 MG TAB TUBE SCH (09:35)
[2017-08-04] MEDS: ENOXAPARIN 40 MG/0.4 ML SYR SC SCH (09:35)
--- NOTE | 2017-08-04 09:49 | PDINTPN ---
[employer] Progress Note Assessment/Plan: Assessment/plan: 31 M with history of polysubstance abuse (cocaine, MJ, etoh) presented with URI complaints and mild hypoxemia, and CXR showed mild patchy infiltrates with lactate 2.7. He was treated initially on the floor for CAP with abx, IVF but an echo showed an EF 10-15% and evidence of chronic cardiomyopathy. His hypoxemia continued to worsen and he was transferred to the ICU 07/28 with a NRB followed by intubation late the same day. 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 Remains on DBT. Cards managing fluid balance. Anticipate re-echo and cath sometime this week * Acute hypoxic respiratory failure with mechanical ventilation- I suspect his severe CHF and MR are the primary cause. extubated without difficulty 08/02. Now on RA * ETOH wd- symptoms reported to me were fairly convincing. Scheduled ativan changed to prn. OK for PCU * Sinus tachycardia with hemodynamic stability. Most likely related to CMP and less likely residual from WD since now HD#7. * PT/OT * OK for PCU 08/04/17 09:47 Subjective: MUCH MORE ALERT TODAY, CONFABULATING Objective: Vital Signs Temp Pulse Resp BP Pulse Ox 36.5 C 137 H 30 H 109/71 97 08/04/17 08:00 08/04/17 08:00 08/04/17 08:00 08/04/17 09:33 08/04/17 08:00 Laboratory Results 08/04/17 05:20 08/04/17 05:20 08/03/17 08/04/17 08/05/17 05:59 05:59 05:59 Intake Total 1441 300 Output Total 3200 450 Balance -1759 -150 PT 13.3 SEC (12.0-15.0) 07/27/17 12:00 INR 0.99 (0.83-1.16) 07/27/17 12:00 Physical Exam - Physical Exam General Appearance: alert, no apparent distress EENT: PERRL/EOMI Neck: supple Respiratory: lungs clear, normal breath sounds, No respiratory distress, No accessory muscle use Cardiac/Chest: regular rate, rhythm, No edema Abdomen: non-tender, soft, No distended Skin: normal color, warm/dry, No cyanosis Lymphatic: no adenopathy Extremities: No pedal edema Neuro/Psych: alert, normal mood/affect, cognition abnormalities ICD10 Worksheet Patient Problems: Problems Problem Status Onset Pneumonia Acute
[2017-08-04] MEDS: CHLORHEXIDINE GLUCONATE 15 ML UDL PO SCH (09:56)
--- NOTE | 2017-08-04 10:11 | PDCARPN ---
Cardiology Progress Note Assessment/Plan: Assessment: 1. Cardiomyopathy, LVEF 10-15% 2. Acute systolic congestive heart failure 3. Moderate to severe mitral regurgitation 4. Moderate to severe tricuspid regurgitation 5. History of polysubstance abuse including alcohol and cocaine 6. Alcohol withdrawal Plan: -continue lisinopril 5 mg p.o. B.i.d. -would not add beta lorenzo at this time. -will plan on the addition of Aldactone tomorrow and potentially increase dose of lisinopril -will plan to gradually titrate heart failure medication -patient require left and right heart catheterization early next week 08/03/17 10:48 08/04/17 10:11 Subjective: Mr. Rehman continues make gradual but steady progress. His cognition is markedly improved from yesterday. He did receive lisinopril 5 mg last evening and again this morning. Blood pressure is tolerating lisinopril. He remains in sinus tachycardia which I think is multifactorial, primarily driven by withdrawal. Of note, BNP has increased from 20/4 100 on August 02 and is currently 11,900. He appears euvolemic on exam. He has no new complaints this morning. I think he is stable for transfer to telemetry floor. Reviewed/Discussed With: family, multidisciplinary team Time Spent With Patient: 20 Objective: Vital Signs (8 Hrs) Temp Pulse Resp BP Pulse Ox 08/04/17 09:33 109/71 08/04/17 08:00 36.5 C 137 H 30 H 123/81 H 97 08/04/17 06:00 124 H 30 H 106/60 96 08/04/17 04:00 37.2 C 124 H 37 H 102/62 95 Intake/Output (24 Hrs) 08/03/17 08/04/17 08/05/17 05:59 05:59 05:59 Intake Total 1441 300 Output Total 3200 450 Balance -1759 -150 Intake: Oral (ml) 300 IV Intake (ml) 450 IV Infused (ml) 806 DOBUTamine 500 mg In D5w 189 250 ml @ Titrate IV CONT PER Rx#:[id number] DOPamine/DEXTROSE 250 ml 122 @ Titrate IV CONT PER Rx# :[id number] Dexmedetomidine HCl 1,000 239 mcg In D5w 250 ml @ Per Protocol IV CONT PER Rx#: [id number] Propofol/Emulsion 100 ml 139 @ Titrate IV CONT PER Rx# :[id number] fentaNYL 1,000 mcg In Ns 117 100 ml @ Per Protocol IV CONT [facility] Rx#:[id number] Tube Feeding (ml) 135 Tube Flush (ml) 50 Output: Urine (ml) 3200 200 Catheter 3200 200 Emesis (ml) 250 Other: Output Comment Incontinence large, soaked bed Number of Voids Incontinence 3 Result Diagrams: 08/04/17 05:20 08/04/17 05:20 - Physical Exam Eyes: anicteric sclera Cardiovascular: no murmurs, no rubs, no gallops, other (Regular rhythm, sinus tachycardia at 130. ) Gastrointestinal: no tenderness Neurologic: CN II-XII grossly intact Psychiatric: interactive, following commands ICD10 Worksheet Patient Problems: Problems Problem Status Onset Pneumonia Acute
[2017-08-04] MEDS ORDERED: LORazepam 2 MG/ML INJ IV PRN ×2 (10:56→11:30)
[2017-08-04] MEDS ORDERED: ACETAMINOPHEN 325 MG TAB PO PRN (11:00)
[2017-08-04] MEDS ORDERED: ONDANSETRON DISINTEGRATING 4 MG TAB PO PRN (11:00)
[2017-08-04] MEDS ORDERED: LORazepam 1 MG TAB PO PRN (11:31)
[2017-08-04] MEDS ORDERED: HALOPERIDOL 1 MG TAB PO PRN (12:50)
--- NOTE | 2017-08-04 12:54 | HOSPPROG ---
Hospitalist Progress Note Assessment/Plan: 31 y/o male new to my care 08/02/17 # EtOH/polysubstance abuse and withdrawal - agree with prn ativan # acute resp failure - d/t pulm edema (resolved) extubated 08/02 # acute sCHF exacerbation/cardiogenic shock due to suspected alcohol induced cardiomyopathy - now off pressors - cont care per cards #tachycardia likely due to withdrawal -check tsh -pt is not fluid responsive per NICOM # acute encephalopathy (improving)/ delirium and not sleeping -trial haldol as needed for sleep - likely d/t etOH and polysubstance withdrawal # VHD - mod/severe MR, mod TR # macrocytosis/thrombocytopenia dispo: transfer to stepdown status with close monitoring in the ICU Subjective: pt is still delirius. Denies chest pain or shortness of breath. Not sleeping per rn employee health Objective: Vital Signs Temp Pulse Resp BP Pulse Ox 37.4 C 129 H 22 H 112/82 H 94 08/04/17 12:00 08/04/17 12:00 08/04/17 12:00 08/04/17 12:00 08/04/17 12:00 Laboratory Results 08/04/17 05:20 08/04/17 05:20 08/03/17 08/04/17 08/05/17 05:59 05:59 05:59 Intake Total 1441 300 Output Total 3200 450 Balance -1759 -150 PT 13.3 SEC (12.0-15.0) 07/27/17 12:00 INR 0.99 (0.83-1.16) 07/27/17 12:00 - Physical Exam Constitutional: no apparent distress, appears nourished, not in pain Cardiovascular: regular rate and rhythym, no murmur, rub, or gallop, tachycardia , No JVD Respiratory: no respiratory distress, no rales or rhonchi, clear to auscultation Genitourinary: no bladder fullness, no bladder tenderness, no renal bruits Skin: no rashes or abrasions, no fluctuance, no induration Neurologic: CN II-XII Intact, other (confused), No facial droop Psychiatric: poor insight, poor judgement, poor memory ICD10 Worksheet Patient Problems: Problems Problem Status Onset Pneumonia Acute
[2017-08-04] MEDS: LISINOPRIL 5 MG TAB PO SCH (21:07)
[2017-08-04] MEDS: MELATONIN 3 MG TAB PO PRN (21:07)
[2017-08-04] MEDS: FAMOTIDINE 20 MG TAB PO SCH (21:08)
[2017-08-05] MEDS ORDERED: POTASSIUM Cl (KCl) 50 ML IV ONE (01:15)
[2017-08-05 05:34] LABS: PLATELET COUNT 290 10^3/uL (150-400)
[2017-08-05] MEDS: LISINOPRIL 5 MG TAB PO SCH ×2 (08:06→20:32)
[2017-08-05] MEDS: ENOXAPARIN 40 MG/0.4 ML SYR SC SCH ×2 (08:06→08:10)
[2017-08-05] MEDS: THIAMINE HCL 100 MG TAB PO SCH (08:09)
[2017-08-05] MEDS: SENNOSIDES/DOCUSATE SODIUM TAB PO SCH ×2 (08:09→20:33)
[2017-08-05] MEDS: FOLIC ACID 1 MG TAB PO SCH (08:09)
[2017-08-05] MEDS: FAMOTIDINE 20 MG TAB PO SCH (08:09)
[2017-08-05] MEDS: NICOTINE 21 MG/24 HR PATCH TD SCH (09:22)
[2017-08-05] MEDS ORDERED: LORazepam 1 MG TAB PO PRN (10:14)
--- NOTE | 2017-08-05 11:23 | PDINTPN ---
[employer] Progress Note Assessment/Plan: Assessment: 31 M with history of polysubstance abuse (cocaine, MJ, etoh,tobacco) presented with URI complaints and mild hypoxemia, and CXR showed mild patchy infiltrates with lactate 2.7. He was treated initially on the floor for CAP with abx, IVF but an echo showed an EF 10-15% and evidence of chronic cardiomyopathy. His hypoxemia continued to worsen and he was transferred to the ICU 07/28 with a NRB followed by intubation late the same day. 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 Cards managing fluid balance. Anticipate re-echo and cath sometime this week * Acute hypoxic respiratory failure with mechanical ventilation- I suspect his severe CHF and MR are the primary cause. extubated without difficulty 08/02. Now on RA * ETOH wd- symptoms reported to me were fairly convincing. Scheduled ativan changed to prn. OK for PCU * Sinus tachycardia with hemodynamic stability. Most likely related to CMP and less likely residual from WD since now HD#7. * PT/OT * OK for PCU Plan: Reduce Ativan. Lower dose of melatonin and change to scheduled qhs. Delirium Rx: Activity during day. Reduce nicotine dose Transfer to PCU Anti-anxiety Rx per Dr. Ricardo 08/05/17 11:30 Subjective: Anxious. Denies pain, dyspnea Objective: Vital Signs Temp Pulse Resp BP Pulse Ox 37 C 133 H 15 126/71 H 92 08/05/17 08:00 08/05/17 08:00 08/05/17 08:00 08/05/17 08:06 08/05/17 08:00 Laboratory Results 08/05/17 05:20 08/05/17 05:20 08/04/17 08/05/17 08/06/17 05:59 05:59 05:59 Intake Total 300 560 240 Output Total 450 350 Balance -150 210 240 PT 13.3 SEC (12.0-15.0) 07/27/17 12:00 INR 0.99 (0.83-1.16) 07/27/17 12:00 Physical Exam - Physical Exam General Appearance: alert, anxiety EENT: normal ENT inspection Neck: normal inspection Respiratory: lungs clear, normal breath sounds Cardiac/Chest: regular rate, rhythm, No edema Abdomen: normal bowel sounds, non-tender Skin: normal color, warm/dry Extremities: non-tender Neuro/Psych: alert, normal mood/affect, oriented x 3 ICD10 Worksheet Patient Problems: Problems Problem Status Onset Pneumonia Acute
--- NOTE | 2017-08-05 11:44 | SOAPPROG ---
SOAP Progress Note Assessment/Plan: Assessment: 31 y/o man with no previous cardiac problems or cardiac work up. He drinks 6-7 alcohol drinks per day x ten years and frequent, recent cocaine use with one week of URI symptoms and green sputum production and now rapidly worsening shortness of breath at rest. Stat bedside echo shows LV enlargement (consistent with chronic CHF) with LVEF 10-15% and global hypokinesis, mild RV dysfunction, severe MR without MV prolapse and moderate TR with estimated PAS 44mmHg, trivial pericardial effusion with no tamponade, no pleural effusion and normal trileaflet AV with no or AI. He has made a lot of progress over last three days getting extubated and weaned off IV DBT and DOPA gtts. Still mentation very impulsive but improving. Denies CP, rest shortness of breath or dizziness. PLAN: 1)start Coreg 3.125mg PO BID 2)start Digoxin 0.25mg PO qam. 3)start IV lasix 20mg daily 4)plan for L/R cardiac cath this saturday with Dr. Nicolas oSuza to rule out obstructive CAD as cause of his newly diagnosed CHF and check right heart filling pressures. 5)if cardiac cath saturday uneventful and compensated, could leave hospital or Saturday from cardiac standpoint with close follow up in [facility] CHF clinic one week post discharge. 08/05/17 11:41 Subjective: Denies CP, rest shortness of breath or PND or dizziness. Objective: Vital Signs Temp Pulse Resp BP Pulse Ox 37 C 133 H 15 126/71 H 92 08/05/17 08:00 08/05/17 08:00 08/05/17 08:00 08/05/17 08:06 08/05/17 08:00 Laboratory Results 08/05/17 05:20 08/05/17 05:20 08/04/17 08/05/17 08/06/17 05:59 05:59 05:59 Intake Total 300 560 240 Output Total 450 350 Balance -150 210 240 PT 13.3 SEC (12.0-15.0) 07/27/17 12:00 INR 0.99 (0.83-1.16) 07/27/17 12:00 Physical Exam - Physical Exam General Appearance: thin EENT: PERRL/EOMI Neck: non-tender Respiratory: lungs clear Cardiac/Chest: tachycardia, systolic murmur, No gallop, No JVD Peripheral Pulses: 2+: carotid (R), carotid (L), femoral (R), femoral (L), dorsalis-pedis (R), dorsalis-pedis (L) Abdomen: non-tender, No rebound, No hepatomegaly, No splenomegaly Skin: warm/dry Extremities: No pedal edema Neuro/Psych: other (still a little disoriented but improving) ICD10 Worksheet Patient Problems: Problems Problem Status Onset Pneumonia Acute
--- NOTE | 2017-08-05 11:50 | ASMTCMCOM ---
CM Note CM Note Notes: Patient continues to be confused, impulsive. Has a severe anxiety diso which is why family thinks he is a poly substance user. Therapies recommending In-pt Rehab. Not ready yet/Hospitalist. Date Signed: 08/05/2017 11:49 AM Electronically Signed By:Eri Graham LCSW
[2017-08-05] MEDS: FUROSEMIDE 20 MG/2 ML VIAL IVP SCH (12:14)
[2017-08-05] MEDS: DIGOXIN 250 MCG TAB PO SCH (12:14)
[2017-08-05] MEDS: CARVEDILOL 3.125 MG TAB PO SCH ×2 (12:14→18:12)
--- NOTE | 2017-08-05 12:27 | HOSPPROG ---
Hospitalist Progress Note Assessment/Plan: 31 y/o male new to my care 08/02/17 # EtOH/polysubstance abuse and withdrawal with persistent delirium - try to taper benzos and reinforce sleep at night -dc roll belt once impulse control is better #longstanding generalized anxiety likely trigger for polysubstance abuse -start lexapro 10mg daily -may need psych eval prior to dc if not improving. 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 no chest pain or shortness of breath. now voices that he wants to sustain sobriety Objective: Vital Signs Temp Pulse Resp BP Pulse Ox 36.6 C 126 H 20 119/82 H 97 08/05/17 11:39 08/05/17 12:14 08/05/17 11:39 08/05/17 12:14 08/05/17 11:39 Laboratory Results 08/05/17 05:20 08/05/17 05:20 08/04/17 08/05/17 08/06/17 05:59 05:59 05:59 Intake Total 300 560 600 Output Total 450 350 Balance -150 210 600 PT 13.3 SEC (12.0-15.0) 07/27/17 12:00 INR 0.99 (0.83-1.16) 07/27/17 12:00 - Physical Exam Ears, Nose, Mouth, Throat: moist mucous membranes, hearing normal, ears appear normal, no oral mucosal ulcers Cardiovascular: regular rate and rhythym, no murmur, rub, or gallop, tachycardia Respiratory: no respiratory distress, no rales or rhonchi, clear to auscultation Gastrointestinal: normoactive bowel sounds, soft, non-tender abdomen, no palpable masses Neurologic: AAOx3, sensation intact bilaterally, CN II-XII Intact, No facial droop ICD10 Worksheet Patient Problems: Problems Problem Status Onset Pneumonia Acute
[2017-08-05] MEDS: NICOTINE 7 MG/24 HR PATCH TD SCH (12:56)
[2017-08-05] MEDS: ESCITALOPRAM OXALATE 10 MG TAB PO SCH (13:30)
[2017-08-05] MEDS: MELATONIN 3 MG TAB PO SCH (20:33)
[2017-08-06] MEDS: ONDANSETRON 4 MG/2 ML VIAL IVP PRN (05:51)
[2017-08-06] MEDS: SENNOSIDES/DOCUSATE SODIUM TAB PO SCH ×2 (09:07→21:17)
[2017-08-06] MEDS: LISINOPRIL 5 MG TAB PO SCH ×2 (09:07→21:17)
[2017-08-06] MEDS: ESCITALOPRAM OXALATE 10 MG TAB PO SCH (09:08)
[2017-08-06] MEDS: NICOTINE 7 MG/24 HR PATCH TD SCH (09:08)
[2017-08-06] MEDS: FOLIC ACID 1 MG TAB PO SCH (09:08)
[2017-08-06] MEDS: THIAMINE HCL 100 MG TAB PO SCH (09:08)
[2017-08-06] MEDS: DIGOXIN 250 MCG TAB PO SCH (09:08)
[2017-08-06] MEDS: FUROSEMIDE 20 MG/2 ML VIAL IVP SCH (09:08)
[2017-08-06] MEDS: ENOXAPARIN 40 MG/0.4 ML SYR SC SCH (09:08)
[2017-08-06] MEDS: CARVEDILOL 3.125 MG TAB PO SCH ×2 (09:08→17:15)
--- NOTE | 2017-08-06 10:00 | PDINTPN ---
[employer] D[employer] Tender Progress Note Assessment/Plan: Assessment: 31 M with history of polysubstance abuse (cocaine, MJ, etoh,tobacco) presented with URI complaints and mild hypoxemia, and CXR showed mild patchy infiltrates with lactate 2.7. He was treated initially on the floor for CAP with abx, IVF but an echo showed an EF 10-15% and evidence of chronic cardiomyopathy. His hypoxemia continued to worsen and he was transferred to the ICU 07/28 with a NRB followed by intubation late the same day. 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 Cards managing fluid balance. Anticipate re-echo and cath sometime this week * Acute hypoxic respiratory failure with mechanical ventilation- I suspect his severe CHF and MR are the primary cause. extubated without difficulty 08/02. Now on RA * ETOH wd- symptoms reported to me were fairly convincing. Scheduled ativan changed to prn. * Sinus tachycardia with hemodynamic stability. Most likely related to CMP and less likely residual from WD since now HD#7. * PT/OT * OK for PCU Plan: Further reduce Ativan. Lower dose of melatonin and change to scheduled qhs. Delirium Rx: Activity during day. Reduce nicotine dose PT/OT eval/Rx, and monitoring for safety/fall risk. Transfer to PCU Continue Lexapro 08/06/17 11:01 Subjective: Slept better last night. No dyspnea. Some anxiety this morning. Objective: Vital Signs Temp Pulse Resp BP Pulse Ox 36.8 C 120 H 19 114/80 96 08/06/17 09:00 08/06/17 09:08 08/06/17 09:00 08/06/17 09:07 08/06/17 09:00 Laboratory Results 08/05/17 05:20 08/05/17 05:20 08/05/17 08/06/17 08/07/17 05:59 05:59 05:59 Intake Total 560 1700 Output Total 350 1051 Balance 210 649 PT 13.3 SEC (12.0-15.0) 07/27/17 12:00 INR 0.99 (0.83-1.16) 07/27/17 12:00 Physical Exam - Physical Exam General Appearance: alert, no apparent distress, anxiety EENT: normal ENT inspection Neck: normal inspection Respiratory: lungs clear, normal breath sounds Cardiac/Chest: regular rate, rhythm, No edema Abdomen: normal bowel sounds, non-tender Skin: warm/dry Extremities: normal inspection Neuro/Psych: alert, normal mood/affect ICD10 Worksheet Patient Problems: Problems Problem Status Onset Pneumonia Acute
--- NOTE | 2017-08-06 11:10 | HOSPPROG ---
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 -now off pressors; remains hemodynamically stable and stable from respiratory standpoint -severe cardiomyopathy; moderate to severe mitral regurgitation with pulmonary hypertension -high arrhythmia risk, need to avoid QT prolonging medications -plan for diagnostic cath chris in the week # acute resp failure - d/t pulm edema (resolved) extubated 08/02 # tachycardia likely due to withdrawal and severe cardiomyopathy -tsh normal; pt is not fluid responsive per NICOM # acute encephalopathy (improving)/ delirium and not sleeping -cont trial haldol as needed for sleep # gait instability, multifactorial related to substance abuse and withdrawal -improving with therapies so far here but still requiring assistance for ambulation safety # polysubstance abuse, severe # longstanding generalized anxiety likely trigger for polysubstance abuse -started lexapro 10mg daily -may need psych eval prior to dc if not improving. Pt may benefit from inpatient stay for severe anxiety # macrocytosis/thrombocytopenia likely related to alcohol In addition to my hospitals found stay, patient was seen by me on multidisciplinary rounds, also review with Dr. Darell Darby At this point the patient has continued to slowly improve in terms of his encephalopathy and his gait instability. In terms of heart failure him is relatively asymptomatic at this point. No concerning arrhythmia is overnight. Presumably his cardiomyopathy is primarily caused by his substance abuse, but need to rule out a coronary cause as well. This is clearly a life-threatening substance abuse problem, and will need to have ongoing discussions with him related to his risks, encourage him to engage in aggressive rehabilitation. His lack of insurance limit his options in terms of rehabilitation settings but he is so far engaging with us positively in these conversations. PLANS: -I have discontinued QT prolonging medicines from his list; will need to keep him off of such medicines in the future -continue cardiac monitoring but at this time can moved to progressive care unit -continue beta-lorenzo, Shashank inhibitor, digoxin, Lasix -plan for coronary angiography tomorrow -continue physical occupational therapy -will need ongoing substance abuse rehabilitation in the outpatient setting as well SUBJECTIVE: -patient says he still somewhat wobbly on his feet, but feels better overall with walking -no shortness of breath, chest pain, palpitations OBJECTIVE Vitals reviewed: Still tachycardic with heart rates in the 105-130 range, regular, marcel otherwise stable without fever Nurse Auditor, my review: Sinus tachycardia variable rate 105-130 Exam: alert oriented, mildly anxious, mildly tremulous skin warm dry color ok resps not labored lungs clear BSs heart regular abd soft nondistended nontender, bowel sounds present limbs warm, no edema iv site ok Laboratory data: No blood tests were done this morning Objective: Vital Signs Temp Pulse Resp BP Pulse Ox 36.8 C 120 H 19 114/80 96 08/06/17 09:00 08/06/17 09:08 08/06/17 09:00 08/06/17 09:07 08/06/17 09:00 Laboratory Results 08/05/17 05:20 08/05/17 05:20 08/05/17 08/06/17 08/07/17 06:59 06:59 06:59 Intake Total 560 1700 Output Total 350 1051 Balance 210 649 PT 13.3 SEC (12.0-15.0) 07/27/17 12:00 INR 0.99 (0.83-1.16) 07/27/17 12:00 - Time Spent With Patient Time Spent with Patient: greater than 35 minutes Time Spent with Patient: Greater than 35 minutes spent on this patients care, greater than 50% of time spent counseling, educating, and coordinating care regarding the above mentioned plan. ICD10 Worksheet Patient Problems: Problems Problem Status Onset Pneumonia Acute
--- NOTE | 2017-08-06 11:56 | PDCARPN ---
Cardiology Progress Note Assessment/Plan: Assessment: Thanh is a 31-year-old male with no previous cardiac problems or cardiac workup. He has a history of polysubstance abuse (cocaine, MJ, EtOH, tobacco). He presented with URI complaints and green and red sputum production with worsening shortness of breath at rest. His CXR showed mild patchy infiltrates. His lactate was 2.7 and he was treated initially with IV antibiotics. He had a stat bedside echo that showed LV enlargement (consistent with chronic CHF) with LVEF 10-15% and global hypokinesis, mild RV dysfunction, severe MR without MV prolapse and moderate TR with estimated PAS 44mmHg, trivial pericardial effusion with no tamponade, no pleural effusion and normal trileaflet AV with no or AI. Thanh has made progress throughout his admission. He required mechanical ventilation after admission and was extubated without difficulty on 08/02 and is now on room air. The patient told me he drinks 3oz of alcohol per day. Other reports stated that the patient drinks 6-7 drinks per day. His alcohol withdrawal symptoms reported to me were very convincing. Thanh remains tachycardic but is hemodynamic stable. I had a direct discussion with his fiance who states that he drinks more than a fifth of vodka or Jagermeister daily. He was fired from his job at the [employer] in May because he was unreliable. His fiance thinks he has been drinking at this level for at least 5 years. The mother thinks this may be more like 8 years. Plan: Dr. Olvera initially consulted on the patient and recommended cardiac catheterization when the patient is no longer decompensated. I would like to schedule the patient to have a cardiac catheterization tomorrow to rule out coronary obstruction as a cause of his newly diagnosed CHF and we will be able to formally evaluate his right heart filling pressures to determine if he is truly euvolemic at present. The patient will remain on Coreg 3.215 mg PO BID, Digoxin 0.25 mg PO qam, and IV Lasix 20mg per the request of Dr. Olvera. I discussed at length lifestyle modifications with the patient. I have recommended he discontinue the use of alcohol and drug use. It is suspected that his acute exacerbation of CHF is likely alcohol induced cardiomyopathy. 08/06/17 17:10 08/06/17 18:36 Reviewed/Discussed With: family, multidisciplinary team Time Spent With Patient: 45 minutes spent with patient family and MDT to coordinate care. Objective: Vital Signs (8 Hrs) Temp Pulse Resp BP Pulse Ox 08/06/17 09:08 120 H 08/06/17 09:07 114/80 08/06/17 09:00 36.8 C 120 H 19 114/80 96 08/06/17 08:00 108 H 20 113/75 08/06/17 04:00 110 H 26 H 115/89 H 95 Intake/Output (24 Hrs) 08/05/17 08/06/17 08/07/17 05:59 05:59 05:59 Intake Total 560 1700 Output Total 350 1051 Balance 210 649 Intake: Oral (ml) 510 1700 IV Intake (ml) 50 Output: Urine (ml) 350 901 Incontinence 1 Toilet 300 Urinal 350 600 Emesis (ml) 150 Other: Number of Voids Incontinence 2 Toilet 2 Number of Stools Incontinence 0 Toilet 0 Urinal 0 Result Diagrams: 08/05/17 05:20 08/05/17 05:20 EKG: sinus tachycardia Telemetry: Sinus tachycardia Echocardiogram: Echocardiogram performed 07/27/17 that showed LV enlargement (consistent with chronic CHF) with LVEF 10-15% and global hypokinesis, mild RV dysfunction, severe MR without MV prolapse (likely functional) and moderate TR with estimated PAS 44mmHg, trivial pericardial effusion with no tamponade, no pleural effusion and normal trileaflet AV with no - Physical Exam Constitutional: WDWN Eyes: PERRL, EOMI Cardiovascular: regular rate and rhythm, no murmurs, no rubs, no gallops, systolic murmur, other (tachycardia and summation gallop) Peripheral Pulses: 2+: carotid (R), carotid (L), femoral (R), femoral (L), dorsalis-pedis (R), dorsalis-pedis (L) Respiratory: clear to auscultate bilat Neurologic: AAOx3, CN II-XII grossly intact Psychiatric: cooperative, other (very tremulous consistent with history of recent withdrawal.) ICD10 Worksheet Patient Problems: Problems Problem Status Onset Pneumonia Acute
--- NOTE | 2017-08-06 15:49 | ASMTCMCOM ---
CM Note CM Note Notes: Patient getting anxious about the hrt cath procedure. Patient given Substance abuse resources, tx as well as [facility] info. CM thinking that it might be good to have PT/OT/STP HC on discharge for a short period. Notified [facility]. Patient will need an appt at [facility] and will need a doc for HC. When getting an appt ask for the possibility of Thanh being able to see a therapist through their [facility] at [facility]. Date Signed: 08/06/2017 03:49 PM Electronically Signed By:Eri Graham LCSW
[2017-08-06] MEDS ORDERED: TEMAZEPAM 15 MG CAP PO PRN (17:58)
[2017-08-06] MEDS ORDERED: NITROGLYCERIN 0.4 MG BTL SL PRN (17:58)
[2017-08-06] MEDS: MELATONIN 3 MG TAB PO SCH (21:16)
[2017-08-06] MEDS: LORazepam 0.5 MG TAB PO PRN (21:19)
[2017-08-07] MEDS: LORazepam 0.5 MG TAB PO PRN (02:30)
[2017-08-07 04:35] LABS: PLATELET COUNT 362 10^3/uL (150-400)
[2017-08-07 04:47] LABS: INR 1.04 (0.83-1.16); PROTIME(PATIENT) 13.8 SEC (12.0-15.0)
[2017-08-07] MEDS ORDERED: ASPIRIN EC 325 MG TAB PO ONE (06:00)
[2017-08-07] MEDS ORDERED: NS 1,000 ML IV ONE (06:00)
[2017-08-07] MEDS ORDERED: DIAZEPAM 5 MG TAB PO ONE (06:00)
[2017-08-07] MEDS ORDERED: FAMOTIDINE 20 MG TAB PO ONE (06:00)
--- NOTE | 2017-08-07 09:07 | PDHPUP ---
History & Physical Update H&P update statement: This history and physical update is based on an assessment of the patient which was completed after admission or registration (within 24 hours), but prior to the surgery/procedure. H&P update: H&P reviewed & patient examined, no change in patient's condition since H&P completed
--- NOTE | 2017-08-07 09:07 | PDPROPOC ---
Sedation Plan of Care Sedation Plan of Care: vital signs stable, mental status noted, patient educated of risks, benefits, alternatives, patient can tolerate sedation ASA Classification: ASA 4 Planned drugs: fentanyl, midazolam Mallampati Score: Class 2 Mallampati Reference Image: Patient passed 3-3-2 rule?: Yes
--- NOTE | 2017-08-07 10:56 | CPEKG ---
Heart Rate: 89 RR Interval: 674 P-R Interval: 160 QRSD Interval: 88 QT Interval: 436 QTC Interval: 531 P Volin: 57 QRS Volin: -15 T Wave Volin: 210 EKG Severity - ABNORMAL ECG - EKG Impression: SINUS RHYTHM EKG Impression: PROBABLE LEFT ATRIAL ABNORMALITY EKG Impression: PROBABLE LEFT VENTRICULAR HYPERTROPHY EKG Impression: ABNORMAL T, PROBABLE ISCHEMIA, WIDESPREAD EKG Impression: PROLONGED QT INTERVAL EKG Impression: SIMILAR ECG CHANGES WERE NOTED IN THE PAST Electronically Signed By: Guy Riley 07-Aug-2017 10:55:43
--- NOTE | 2017-08-07 11:25 | SOAPPROG ---
SOAP Progress Note Assessment/Plan: Assessment: 31 y/o man with no previous cardiac problems or cardiac work up. He drinks 6-7 alcohol drinks per day x ten years and frequent, recent cocaine use with one week of URI symptoms and green sputum production and now rapidly worsening shortness of breath at rest. Stat bedside echo shows LV enlargement (consistent with chronic CHF) with LVEF 10-15% and global hypokinesis, mild RV dysfunction, severe MR without MV prolapse and moderate TR with estimated PAS 44mmHg, trivial pericardial effusion with no tamponade, no pleural effusion and normal trileaflet AV with no or AI. He has made a lot of progress over last three days getting extubated and weaned off IV DBT and DOPA gtts. Still mentation very impulsive but improving. Denies CP, rest shortness of breath or dizziness. He appears compensated and euvolemic today. PLAN: 1)left and right heart cath today. R/B/A discussed with pt and his mom. 2)increase Coreg to 6.25mg PO BID 3)change IV lasix to Lasix 20mg PO qam. 4)change Lisinopril to 5mg PO qam. 5)probably could be discharged to home or Saturday from cardiac standpoint with close f/u in [facility]F clinic unless markedly abnormal hemodynamics in cath today. 08/07/17 11:22 Subjective: a little anxious about the cath later today. Denies CP, PND, near syncope or cough. Objective: Vital Signs Temp Pulse Resp BP Pulse Ox 36.7 C 94 20 115/83 H 96 08/07/17 07:59 08/07/17 07:59 08/07/17 07:59 08/07/17 07:59 08/07/17 07:59 Laboratory Results 08/07/17 04:15 08/07/17 04:15 08/06/17 08/07/17 08/08/17 05:59 05:59 05:59 Intake Total 1700 1500 Output Total 1051 1800 Balance 649 -300 PT 13.8 SEC (12.0-15.0) 08/07/17 04:15 INR 1.04 (0.83-1.16) 08/07/17 04:15 Physical Exam - Physical Exam General Appearance: alert EENT: PERRL/EOMI Neck: non-tender Respiratory: lungs clear Cardiac/Chest: tachycardia, systolic murmur, No gallop, No JVD Peripheral Pulses: 2+: carotid (R), carotid (L), femoral (R), femoral (L), dorsalis-pedis (R), dorsalis-pedis (L) Abdomen: non-tender, No guarding, No rebound Skin: warm/dry Extremities: No pedal edema Neuro/Psych: alert ICD10 Worksheet Patient Problems: Problems Problem Status Onset Pneumonia Acute
--- NOTE | 2017-08-07 14:03 | HOSPPROG ---
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 -now off pressors; remains hemodynamically stable and stable from respiratory standpoint -severe cardiomyopathy EF 10-15; moderate to severe mitral regurgitation with pulmonary hypertension -high arrhythmia risk, need to avoid QT prolonging medications # acute resp failure - d/t pulm edema (resolved) extubated 08/02 # tachycardia likely due to withdrawal and severe cardiomyopathy -tsh normal; pt is not fluid responsive per NICOM # acute encephalopathy (improving)/ delirium and not sleeping -cont trial haldol as needed for sleep # gait instability, multifactorial related to substance abuse and withdrawal, nutritional issues, other -improving with therapies so far here but still requiring assistance for ambulation safety # polysubstance abuse, severe -alcohol prominent # longstanding generalized anxiety likely trigger for polysubstance abuse -started lexapro 10mg daily here -may need psych eval prior to dc if not improving. Pt may benefit from inpatient stay for severe anxiety # macrocytosis/thrombocytopenia likely related to alcohol In addition to my hospitalist rounds today, patient was seen by me on multidisciplinary rounds At this point the patient has continued to slowly improve in terms of his encephalopathy and his gait instability. In terms of heart failure him is relatively asymptomatic at this point. No concerning arrhythmia is overnight. Presumably his cardiomyopathy is primarily caused by his substance abuse, but need to rule out a coronary cause as well. This is clearly a life-threatening substance abuse problem, and will need to have ongoing discussions with him related to his risks, encourage him to engage in aggressive rehabilitation. His lack of insurance limit his options in terms of rehabilitation settings but he is so far engaging with us positively in these conversations. PLANS: -I have discontinued QT prolonging medicines from his list; will need to keep him off of such medicines in the future -continue cardiac monitoring but at this time can moved to progressive care unit -continue beta-lorenzo, Shashank inhibitor, digoxin, Lasix -plan for coronary angiography tomorrow -continue physical occupational therapy -will need ongoing substance abuse rehabilitation in the outpatient setting as well SUBJECTIVE: -patient says he still somewhat wobbly on his feet, but feels better overall with walking -no shortness of breath, chest pain, palpitations OBJECTIVE Vitals reviewed: Still tachycardic but now with heart rates in the 95-105 range , regular, vitals otherwise stable without fever Ski Guide, my review: Sinus tachycardia variable rate 95-105 Exam: alert oriented, mildly anxious, mildly tremulous skin warm dry color ok resps not labored lungs clear BSs heart regular abd soft nondistended nontender, bowel sounds present limbs warm, no edema iv site ok Laboratory data: Stable CBC and metabolic panel LDL elevated at 155 Objective: Vital Signs Temp Pulse Resp BP Pulse Ox 36.8 C 106 H 16 90/65 L 96 08/07/17 12:00 08/07/17 12:00 08/07/17 12:00 08/07/17 12:00 08/07/17 12:00 Laboratory Results 08/07/17 04:15 08/07/17 04:15 08/06/17 08/07/17 08/08/17 06:59 06:59 06:59 Intake Total 1700 1500 Output Total 1051 1800 Balance 649 -300 PT 13.8 SEC (12.0-15.0) 08/07/17 04:15 INR 1.04 (0.83-1.16) 08/07/17 04:15 ICD10 Worksheet Patient Problems: Problems Problem Status Onset Pneumonia Acute
[2017-08-07] MEDS ORDERED: MIDAZOLAM 2 MG/2 ML VIAL ONE (14:37)
[2017-08-07] MEDS ORDERED: LIDOCAINE 1% 300 MG/30 ML SDV ONE (14:37)
[2017-08-07] MEDS ORDERED: fentaNYL 100 MCG/2 ML INJ ONE (14:37)
[2017-08-07] MEDS ORDERED: IOPAMIDOL (ISOVUE-370) 150 ML BTL IV ONE (14:38)
--- NOTE | 2017-08-07 15:24 | PDDXCAT ---
Diagnostic Cath Note - . Date: 08/07/17 Anatomic Pathology Assistant: Harley (Acute on chronic CHF.) Indication: other (Acute on chronic CHF, EF 10%. ) - Procedure Access: right groin Procedure: left heart catheterization, coronary angiography, right heart catheterization - Materials Left Heart Cath size: 5F Left Heart Cath materials: standard multipack (JL4, JR4, pigtail) Right Heart Cath materials: PWP catheter - Findings-Left Heart Catheterization LM: The LM is 6mm in size. It trifurcates into an LAD, Circumflex and Ramus system. There is no plaque visualized. BUDDY III flow. LAD: The LAD is 4mm in size. BUDDY III flow. The LAD quickly gives rise to a large diagonal branch 3mm in size. 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 LCX: The LCX is is 3 mm in size and gives rise to a large OM. BUDDY III flow. RCA: 4mm in size and dominant. BUDDY III flow throughout. Ramus: The ramus is 1.5mm in size and free of disease. LVEF: The EF is severely decreased at 10%. Wall motion: The patient has severely decreased EF of 10%. There is basal inferior akinesis, otherwise there is severe hypokinesis throughout. - Findings-Right Heart Catheterization RA: Pressure 5/4. RV: Pressure 21/1 end diastolic pressure 5 mmHg. PA: Pressure 19/10. Saturation: 74.2%. PAOP: 9mmHg. AO: 98.1% CO: 4.6 L/min. CI: 2.5 L/min/m2. Complications: None. Estimated blood loss: <50ml Closure method: Angioseal Assessment: The patient has a dilated non-ischemic cardiomyopathy that is very likely secondary to chronic and severe alcohol abuse, and is therefore best characterized as an alcoholic cardiomyopathy. The patient has nicely branching coronary system that is free of flow limiting plaque or coronary disease. A minor distal LAD muscle bridge is present with no evidence of flow limiting obstruction, and is not of clinical significance. Plan: The patient needs to stop the use of cocaine and alcohol immediately, completely and forever. The continued use of alcohol and cocaine in combination is very likely to lead to premature from stroke, pump failure, and/or ventricular tachydysrhythmia. He will need to be treated with a combination of beta blockade, aldosterone antagonist, SAFIA/ARB with consideration for the use of Entresto if blood pressure and renal function tolerates. He will need careful and frequent follow up after discharge with the transitional care team. Ideally this patient should be discharged to an inpatient drug and alcohol rehabilitation facility. If he has a relapse and/or continues to drink alcohol, we could expect him to of CHF/pump failure and/or suddenly from a ventricular tachydysrhythmia. Intervention: NONE. Patient Problems: Problems Problem Status Onset Pneumonia Acute
--- NOTE | 2017-08-07 15:39 | HOSPPROG ---
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 -now off pressors; remains hemodynamically stable and stable from respiratory standpoint -severe cardiomyopathy EF 10-15; moderate to severe mitral regurgitation with pulmonary hypertension -high arrhythmia risk, need to avoid QT prolonging medications # acute resp failure - d/t pulm edema (resolved) extubated 08/02 # tachycardia likely due to withdrawal and severe cardiomyopathy -tsh normal; pt is not fluid responsive per NICOM # acute encephalopathy (improving)/ delirium and not sleeping -cont trial haldol as needed for sleep # gait instability, multifactorial related to substance abuse and withdrawal, nutritional issues, other -improving with therapies so far here but still requiring assistance for ambulation safety # polysubstance abuse, severe -alcohol prominent # longstanding generalized anxiety likely trigger for polysubstance abuse -started lexapro 10mg daily here -may need psych eval prior to dc if not improving. Pt may benefit from inpatient stay for severe anxiety # macrocytosis/thrombocytopenia likely related to alcohol Continues good improvement in terms of his mentation and his ataxia. He is very enthusiastic about remaining sober and engaging in rehabilitation for that Very enthusiastic about wanting to take the best care possible for his heart though somewhat nervous about his angiography later today I reviewed the patient's care plan in detail today with Dr. Nicolas Souza for Cardiology PLANS: -I have discontinued QT prolonging medicines from his list; will need to keep him off of such medicines in the future -continue cardiac monitoring but at this time can moved to progressive care unit -continue beta-lorenzo, Shashank inhibitor, digoxin, Lasix -plan for coronary angiography later today -continue physical occupational therapy but did not think he will need this much longer -will need ongoing substance abuse rehabilitation in the outpatient setting as well SUBJECTIVE: Says he feels better overall today Stronger, better balance, walking without assistance or aids Eating better as of last night No specific cardiac symptoms OBJECTIVE Vitals reviewed: Pulse still intermittently mildly tachycardic otherwise stable 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, 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: Sinus rhythm in better heart rate range though still occasional mild tachycardia Exam: alert oriented, not nearly as anxious, no longer tremulous; very well oriented and conversant today skin warm dry color ok resps not labored lungs clear BSs heart regular abd soft nondistended nontender, bowel sounds present limbs warm, no edema iv site ok Laboratory data: Stable CBC; still with some macrocytosis but that is improving somewhat now Chemistry panel otherwise stable LDL elevated at 155 Objective: Vital Signs Temp Pulse Resp BP Pulse Ox 36.8 C 106 H 16 90/65 L 96 08/07/17 12:00 08/07/17 12:00 08/07/17 12:00 08/07/17 12:00 08/07/17 12:00 Laboratory Results 08/07/17 04:15 08/07/17 04:15 08/06/17 08/07/17 08/08/17 06:59 06:59 06:59 Intake Total 1700 1500 Output Total 1051 1800 Balance 649 -300 PT 13.8 SEC (12.0-15.0) 08/07/17 04:15 INR 1.04 (0.83-1.16) 08/07/17 04:15 - Time Spent With Patient Time Spent with Patient: greater than 35 minutes Time Spent with Patient: Greater than 35 minutes spent on this patients care, greater than 50% of time spent counseling, educating, and coordinating care regarding the above mentioned plan. ICD10 Worksheet Patient Problems: Problems Problem Status Onset Pneumonia Acute
[2017-08-07] MEDS ORDERED: ONDANSETRON 4 MG/2 ML VIAL IVP PRN (16:03)
[2017-08-07] MEDS ORDERED: OXYCODONE/APAP 5/325 TAB PO PRN (16:03)
[2017-08-07] MEDS ORDERED: ATROPINE SULFATE 1 MG/10 ML SYR IVP PRN (16:03)
[2017-08-07] MEDS ORDERED: HYDROCODONE/APAP 5/325 TAB PO PRN (16:03)
[2017-08-07] MEDS: CARVEDILOL 6.25 MG TAB PO SCH (18:13)
[2017-08-07] MEDS: SENNOSIDES/DOCUSATE SODIUM TAB PO SCH ×2 (18:13→20:48)
[2017-08-07] MEDS: DIGOXIN 250 MCG TAB PO SCH (18:13)
[2017-08-07] MEDS: ESCITALOPRAM OXALATE 10 MG TAB PO SCH (18:14)
[2017-08-07] MEDS: FOLIC ACID 1 MG TAB PO SCH (18:14)
[2017-08-07] MEDS: THIAMINE HCL 100 MG TAB PO SCH (18:14)
[2017-08-07] MEDS: FUROSEMIDE 20 MG/2 ML VIAL IVP SCH (18:40)
[2017-08-07] MEDS: CARVEDILOL 3.125 MG TAB PO SCH (18:40)
[2017-08-07] MEDS: LISINOPRIL 5 MG TAB PO SCH (18:40)
[2017-08-07] MEDS: NICOTINE 7 MG/24 HR PATCH TD SCH (18:47)
[2017-08-07] MEDS: MELATONIN 3 MG TAB PO SCH (21:45)
[2017-08-08 06:04] LABS: PLATELET COUNT 435 10^3/uL (150-400)
[2017-08-08] MEDS: LORazepam 0.5 MG TAB PO PRN (06:27)
--- NOTE | 2017-08-08 08:58 | SOAPPROG ---
SOAP Progress Note Assessment/Plan: Assessment: 31 y/o man with no previous cardiac problems or cardiac work up. He drinks 6-7 alcohol drinks per day x ten years and frequent, recent cocaine use with one week of URI symptoms and green sputum production and now rapidly worsening shortness of breath at rest. Stat bedside echo shows LV enlargement (consistent with chronic CHF) with LVEF 10-15% and global hypokinesis, mild RV dysfunction, severe MR without MV prolapse and moderate TR with estimated PAS 44mmHg, trivial pericardial effusion with no tamponade, no pleural effusion and normal trileaflet AV with no or AI. He has made a lot of progress over last three days getting extubated and weaned off IV DBT and DOPA gtts. Still mentation very impulsive but improving. Denies CP, rest shortness of breath or dizziness. He appears compensated and euvolemic today. Cardiac cath yesterday showed as expected normal coronaries with no CAD and PCWP 9 and CI 2.5 L/MIN. REC: 1)stop Lasix 20mg PO qam. 2)rest of meds without changes. 3)okay to discharge home today and follow up [facility]F clinic[facility] next or Saturday. My RN will call him today to give me date and time. 4)fluid restrict at home to 64 oz/day total fluid 5)NACL restrict to 2000mg/day 6)pt probably at risk for cardiac clot though none seen on echo or LV gram. I am concerned about his compliancy but if establishes good follow up record in next several weeks, will discuss with him being on Eliquis for 2-3 months until LV recovers. 7)absolutely no ETOH or cocaine. 8)hold BP meds for SBP < 85mmHg. Thanks. Will sign off and see him next week in out-patient clinic. Call if needed. 08/08/17 08:54 Subjective: still very talkative but denies CP, PACE, syncope or TIA. Objective: Vital Signs Temp Pulse Resp BP Pulse Ox 37 C 93 16 93/49 L 95 08/08/17 08:20 08/08/17 08:20 08/08/17 08:20 08/08/17 08:20 08/08/17 08:20 Laboratory Results 08/08/17 05:45 08/08/17 05:45 08/07/17 08/08/1708/09/18 05:59 05:59 05:59 Intake Total 1500 1100 Output Total 1800 Balance -300 1100 PT 13.8 SEC (12.0-15.0) 08/07/17 04:15 INR 1.04 (0.83-1.16) 08/07/17 04:15 Physical Exam - Physical Exam General Appearance: alert EENT: normal ENT inspection Neck: non-tender Respiratory: chest non-tender Cardiac/Chest: regular rate, rhythm, systolic murmur, No gallop, No JVD Peripheral Pulses: 2+: carotid (R), carotid (L), femoral (R), femoral (L), dorsalis-pedis (R), dorsalis-pedis (L) Abdomen: non-tender, No guarding, No rebound, No hepatomegaly, No splenomegaly Skin: warm/dry Extremities: No pedal edema Neuro/Psych: alert ICD10 Worksheet Patient Problems: Problems Problem Status Onset Pneumonia Acute
[2017-08-08] MEDS ORDERED: FUROSEMIDE 20 MG TAB PO SCH (09:00)
[2017-08-08] MEDS ORDERED: LISINOPRIL 5 MG TAB PO SCH (09:00)
[2017-08-08] MEDS: ESCITALOPRAM OXALATE 10 MG TAB PO SCH (09:06)
[2017-08-08] MEDS: DIGOXIN 250 MCG TAB PO SCH (09:06)
[2017-08-08] MEDS: FOLIC ACID 1 MG TAB PO SCH (09:06)
[2017-08-08] MEDS: THIAMINE HCL 100 MG TAB PO SCH (09:08)
[2017-08-08] MEDS: CARVEDILOL 6.25 MG TAB PO SCH (09:09)
[2017-08-08] MEDS: NICOTINE 7 MG/24 HR PATCH TD SCH (09:10)
--- NOTE | 2017-08-08 09:21 | ASMTCMCOM ---
CM Note CM Note Notes: Soke with patient and his fiance, Funmi about follow up appointments. Both were in support of the D/C plan. [facility] at the [facility] on August at 15:00 (3:00 PM) for an appointment with Dr. Mily Kumar who will follow him as his PCP. [facility] will also set him up with mental health providers to follow him for his anxiety. Dr. Kumar will help patient locate a structural rigger if the hospital Dr.'s have not already done this. Patient's fiance was notified of the appointment. Did not get an opportunity to speak with patient who was transferred to . A family meeting had been scheduled on 2N today at 12:30 to go over the plan and follow up appointments. It is unclear if this will happen today. CM will follow. Date Signed: 08/08/2017 09:21 AM Electronically Signed By:Alexandrea Galindo LCSW
[2017-08-08] MEDS: SENNOSIDES/DOCUSATE SODIUM TAB PO SCH (09:33)
--- NOTE | 2017-08-08 12:28 | ASMTCMCOM ---
CM Note CM Note Notes: CM spoke w/ Alexandrea, ICU manager case management regarding this case. CM met w/ pt and family for dispo planning. CM provided pt w/ appointment w/ Dr. Mily Kumar. Pts ray has already done research on some substance treatment facilities. Pts marliroland will help pt enroll in health insurance once pt starts working again and his Medicaid ends. [facility] and psychiatrist to work on his anxiety. Pt and family would like to cancel family meeting for this afternoon. No other identified needs at this time. CM available for changes. Plan: Independent Date Signed: 08/08/2017 12:27 PM Electronically Signed By:EM Kidd
[2017-08-08] MEDS: ENOXAPARIN 40 MG/0.4 ML SYR SC SCH (13:45)
--- NOTE | 2017-08-08 14:01 | PDDCSUM ---
Discharge Summary Discharge Summary: DISCHARGE DIAGNOSES: -acute systolic and valvular congestive heart failure -severe cardiomyopathy with global hypokinesis and severe mitral regurgitation, LV EF at 10-15%, induced by cocaine and alcohol -acute alcohol withdrawal -gait instability from alcohol and nutritional issues, markedly improved with therapy here -suspected vitamin deficiencies treated here -chronic alcohol and cocaine abuse as well as marijuana abuse -chronic anxiety disorder, severe -mild alcoholic hepatitis -macrocytosis felt due to alcohol and nutritional issues, but without anemia CONSULTANTS: Breanna Olvera and Harley of cardiology Dr. Matthew of Critical Care pulmonology PROCEDURES: Coronary angiography showing no coronary artery atherosclerosis HOSPITAL COURSE SUMMARY: This patient with long history of heavy alcohol and cocaine abuse and severe anxiety disorder came in with respiratory symptoms found to have systolic congestive heart failure with severe global cardiomyopathy ejection fraction 10- 15%, severe mitral regurgitation and tricuspid regurgitation. He was intoxicated developed alcohol withdrawal. There was encephalopathy and gait instability. Use admit to intensive care unit treated aggressively for his withdrawal, with vitamin replacements and was treated in usual fashion for his congestive heart failure with diuretics and beta-lorenzo SAFIA-inhibitor and digoxin. He did not have arrhythmia. His course was gradual but with remarkable improvement with resolution of the encephalopathy and gait instability and has recovered nicely from the alcohol withdrawal. He is easily been diuresed to euvolemic a and his respiratory symptoms resolved. Coronary angiography showed no evidence of coronary atherosclerosis. His blood pressures are on the low side at this time. At this point he is medically stable for discharge. He is very committed to sobriety at this point will be entering rehabilitation that the [facility]. 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 He will begin seeking other work at this time. In addition he is very committed to managing his cardiac health. He understands low-salt and low fluid intakes as recommended. He has no issues with taking his medications. He plans to follow up very closely with Dr. Olvera in clinic. He has very supportive family who have been here at the bedside with him. Appointments have been set at [facility] and at the Cardiology Clinic PENDING TEST RESULTS: None MEDICATION CHANGES: Digoxin, lisinopril, and Coreg are prescribed with a 1 month supply. He is not felt to need diuretic at this point. Lexapro 20 mg daily is added. I have given the patient a prescription for 20 tablets of 0.5 mg Ativan to use in times of crisis anxiety but instructed him to not take these on a scheduled basis if at all possible and to not use them for sleep at night. He understands to not drive or perform other dangerous activities under the influence of the medicine. He does understand that Ativan can perpetuate anxiety if used regularly. FOLLOW-UP PLAN: Cardiology clinic in 1 week [facility] in 1 week Greater than 35 minutes bedside and care coordination time today
[2017-08-08 14:23] VITALS: BP 101/70
== END 2017-08-08 15:57 | disposition home or self-care (01) | DRG 207 ==
LOC: INTOOBSV 12:22 → F1N 13:20 → F2N 15:11 → OBSVTOIN 16:56 → F2N 07-31 05:13 → F2W 08-08 00:08
PROVIDERS: ADMIT Internal Medicine; ATTEND Internal Medicine
PROC: 02HV33Z Insertion of Infusion Device into Superior Vena Cava, Percutaneous Approach (ICD-10-PCS; 2017-07-27)
PROC: HZ2ZZZZ Detoxification Services for Substance Abuse Treatment (ICD-10-PCS; principal; 2017-07-28)
PROC: 5A1955Z Respiratory Ventilation, Greater than 96 Consecutive Hours (ICD-10-PCS; principal; 2017-07-28)
PROC: 0BH18YZ Insertion of Other Device into Trachea, Via Natural or Artificial Opening Endoscopic (ICD-10-PCS; principal; 2017-07-28)
PROC: B2151ZZ Fluoroscopy of Left Heart using Low Osmolar Contrast (ICD-10-PCS; 2017-08-07)
PROC: B2111ZZ Fluoroscopy of Multiple Coronary Arteries using Low Osmolar Contrast (ICD-10-PCS; 2017-08-07)
PROC: 4A023N8 Measurement of Cardiac Sampling and Pressure, Bilateral, Percutaneous Approach (ICD-10-PCS; 2017-08-07)
DX: J96.01 Acute respiratory failure with hypoxia (principal); I50.23 Acute on chronic systolic (congestive) heart failure; R57.0 Cardiogenic shock; F10.231 Alcohol dependence with withdrawal delirium; F10.280 Alcohol dependence with alcohol-induced anxiety disorder; F12.180 Cannabis abuse with cannabis-induced anxiety disorder; F14.180 Cocaine abuse with cocaine-induced anxiety disorder; E87.2 Acidosis; I42.6 Alcoholic cardiomyopathy; K70.10 Alcoholic hepatitis without ascites; J06.9 Acute upper respiratory infection, unspecified; G31.2 Degeneration of nervous system due to alcohol; I95.9 Hypotension, unspecified; F17.210 Nicotine dependence, cigarettes, uncomplicated; R00.0 Tachycardia, unspecified; F41.8 Other specified anxiety disorders; D75.89 Other specified diseases of blood and blood-forming organs; E16.2 Hypoglycemia, unspecified; I08.1 Rheumatic disorders of both mitral and tricuspid valves; Y90.9 Presence of alcohol in blood, level not specified; Z91.5 Personal history of self-harm
CPT/HCPCS: 80307; 92523-GN; 92526-GN; 92610-GN; 96365; 97112-GP; 97116-GP; 97162-GP; 97166-GO; 97530-GO; 97530-GP; 97535-GO; C1751; C1760; G0480; G0515-GO; J0330; J0456; J0610; J0696; J1250; J1265; J1630; J1644; J1650; J1940; J2060; J2250; J2405; J2550; J2704; J2997; J3010; J3411; J3475; J3480; P9047; Q9967

== ENCOUNTER 2018-01-12 19:51 | Emergency (ER) | payer MEDICAID, OTHER ==
[2018-01-12 19:56] VITALS: BP 140/89
--- NOTE | 2018-01-12 20:04 | EDPHY ---
H & P Time Seen by Provider: 01/12/18 20:02 HPI/ROS: CHIEF COMPLAINT: "I had a panic attack" HISTORY OF PRESENT ILLNESS: Patient is a history of ICU admission to our hospital in July of this year for severe cardiomyopathy thought due to drugs and/or alcohol. He sees the Cardiology Clinic and tells me he was cleared in October by Dr. Olvera, and his ejection fraction had improved to 48%. He takes carvedilol and Lexapro and Ativan and lisinopril. Did not miss any of his medications recently. Tonight he was apparently arrested by police and had what he describes as a panic attack by rapid breathing and short of breath and feeling very scared. This feels just like previous panic attacks by his account. That has mostly gotten better but not completely gone and he is asking to take his Ativan. Denies chest pain or missing his medications or leg swelling or current short of breath or coughing. REVIEW OF SYSTEMS: Eye: no change in vision ENT: no sore throat Cardiac: no chest pain or syncope Pulmonary: HPI no coughing Abdomen: no vomiting, diarrhea, abdominal pain Musculoskeletal: No leg swelling Skin: no rash Neuro: no headache Constitutional: no fever : no urinary symptoms A comprehensive 10 point review of systems is otherwise negative aside from elements mentioned in the history of present illness. PAST MEDICAL HISTORY: History of cardiomyopathy, hypertension, anxiety and panic attacks Social history: he denies cocaine, still drinks alcohol T 36.6 General Appearance: Alert and conversant, cooperative. Eyes: No scleral icterus. Pupils equal reactive extraocular motion intact. ENT, Mouth: Normal mucous membranes. Respiratory: Normal respiratory effort, breath sounds equal, lungs are clear to auscultation. No rales. Speaks in full sentences. Cardiovascular: Regular rate and rhythm. No murmur. Gastrointestinal: Abdomen is soft and non tender. Neurological: Alert, face symmetric, normal motor and sensory in extremities. Skin: Warm and dry, no rashes. Musculoskeletal: No peripheral edema. Psychiatric: Not agitated. Moderately anxious. Emergency Department course/MDM: Patient likely had a panic attack. I do not think it is likely that he had acute coronary syndrome or recurrent CHF, pulmonary embolism or other acute cardiopulmonary problem. Oral Ativan 1 mg, discharged to custody of police. 12-lead EKG interpreted by me; official reading is in computer system. My interpretation is sinus rhythm with late anterior RS transition unchanged from previous. Smoking Status: Current some day smoker Constitutional: Initial Vital Signs Heart Rate 81 01/12/18 19:54 Respiratory Rate 22 H 01/12/18 19:54 Blood Pressure 140/89 H 01/12/18 19:54 O2 Sat (%) 96 01/12/18 19:54 O2 Delivery Mode Room Air Allergies/Adverse Reactions: No Known Allergies Allergy (Verified 12/03/17 17:24) Home Medications: Medication Instructions Recorded Carvedilol [Coreg (*)] 6.25 mg PO BIDMEAL #60 tab 08/08/17 Escitalopram Oxalate [Lexapro] 20 mg PO DAILY #30 tablet 08/08/17 LORazepam [Ativan (*)] 0.5 mg PO TID PRN #20 tab 08/08/17 Lisinopril [Zestril 5 mg (*)] 5 mg PO DAILY #60 tab 08/08/17 Medical Decision Making - Data Points Medications Given: Discontinued Medications Lorazepam (Ativan) 1 mg PO EDNOW ONE Stop: 01/12/18 20:14 Last Admin: 01/12/18 20:15 Dose: 1 mg Departure - Departure Disposition: Law Enforcement/Court/Custodial Clinical Impression: Panic attack Condition: Good Instructions: Panic Attack (ED) Additional Instructions: MEDICALLY CLEARED FOR LONG-TERM Referrals: Max Olvera MD [Medical Doctor] - As per Instructions
[2018-01-12] MEDS ORDERED: LORazepam 1 MG TAB PO ONE (20:13)
[2018-01-12] MEDS ORDERED: LORazepam 1 MG TAB ONE (20:13)
--- NOTE | 2018-01-12 20:17 | CPEKG ---
Test Reason : OPEN Blood Pressure : / mmHG Vent. Rate : 083 BPM Atrial Rate : 082 BPM P-R Int : 199 ms QRS Dur : 093 ms QT Int : 403 ms P-R-T Axes : 076 072 059 degrees QTc Int : 474 ms Sinus rhythm Anteroseptal infarct, old Confirmed by Lionel Flaherty ([id number]) on 01/12/2018 8:16:53 PM Referred By: Confirmed By:Lionel Flaherty
== END 2018-01-12 20:45 ==
LOC: EDUNIT#
DX: F41.0 Panic disorder [episodic paroxysmal anxiety] (principal); I10 Essential (primary) hypertension